=== PATIENT | female | born 1955 | race Caucasian/White ===

== ENCOUNTER 2018-04-23 18:37 | Emergency (ER) | payer MEDICAID ==
[~2018-04-23] VITALS: Ht 175.3 cm; Wt 60.0 kg
[2018-04-23] MEDS ORDERED: GABA-529 PO (19:14)
[2018-04-23] MEDS ORDERED: METF-960 PO (19:14)
[2018-04-23] MEDS ORDERED: TRAZ-219 PO (19:14)
[2018-04-23 19:39] LABS: GLUCOSE,POINT OF CARE 104 MG/DL (70-110)
[2018-04-23] MEDS ORDERED: OLAN5TAB2 PO (19:45)
[2018-04-23] MEDS ORDERED: SODIUM CHLORIDE 0.9% 1,000 ML IV ONE (20:00)
[2018-04-23 20:08] LABS: BASOPHILS % (AUTO) 0.7 % (0.0-2.0); EOSINOPHILS % (AUTO) 1.5 % (1.0-6.0); HEMATOCRIT 44.6 % (36-46); HEMOGLOBIN 15.4 g/dL (12.0-16.0); LYMPHOCYTES % (AUTO) 29.9 % (22.0-44.0); MEAN CORPUSCULAR HEMOGLOBIN 31.8 pg (26.0-34.0); MEAN CORPUSCULAR HGB CONC 34.6 G/dL (31.0-37.0); MEAN CORPUSCULAR VOLUME 92 fL (80-100); MONOCYTES # (AUTO) 0.6 K/uL (0.1-1.0); MONOCYTES % (AUTO) 5.8 % (2.0-9.0); NEUTROPHILS # (AUTO) 6.2 K/uL (1.8-7.7); NEUTROPHILS % (AUTO) 62.1 % (40.0-70.0); PLATELET COUNT (AUTO) 195 K/uL (150-450); RED BLOOD CELL COUNT(AUTO) 4.84 MIL/uL (4.00-5.20); RED CELL DISTRIBUTION WIDTH 13.7 % (11.5-14.5)
[2018-04-23 20:18] LABS: ANION GAP 8 mmol/L (8-16); CALCIUM, TOTAL 9.3 mg/dL (8.8-10.5); CARBON DIOXIDE 27 mmol/L (22-29); CHLORIDE 104 mmol/L (98-107); CREATININE 0.46 mg/dL (0.60-1.30); GLOMERULAR FILTR. RATE CALC > 60 mL/min (>60); GLUCOSE,RANDOM 106 mg/dL (70-110); SODIUM SERUM 139 mmol/L (136-145); UREA NITROGEN, BLOOD 9 mg/dL (7-18)
[2018-04-23 20:24] LABS: ALANINE AMINOTRANSFERASE 16 U/L (12-78); ALBUMIN 3.7 g/dL (3.4-5.0); ALKALINE PHOSPHATASE 78 U/L (46-116); ASPARTATE AMINOTRANSFERASE 13 U/L (15-37); BILIRUBIN,TOTAL 0.5 mg/dL (0.1-1.0); TOTAL PROTEIN, SERUM 7.3 g/dL (6.4-8.2)
[2018-04-23] MEDS ORDERED: POTASSIUM CHLORIDE 20 MEQ ER TABLET PO ONE (21:00)
[2018-04-23 21:34] LABS: APPEARANCE,URINE CLOUDY (CLEAR); BILIRUBIN,URINE NEGATIVE (NEGATIVE); GLUCOSE, URINE (UA) NEGATIVE (NEGATIVE); KETONES,URINE NEGATIVE (NEGATIVE); LEUKOCYTE ESTERASE ,URINE SMALL (NEGATIVE); NITRATE,URINE POSITIVE (NEGATIVE); OCCULT BLOOD,URINE NEGATIVE (NEGATIVE); PROTEIN,URINE NEGATIVE (NEGATIVE)
[2018-04-23 21:40] LABS: AMPHET/METH SCREEN,URINE NEGATIVE (NEGATIVE); BARBITURATE SCREEN, URINE NEGATIVE (NEGATIVE); BENZODIAZEPINES SCREEN,URINE NEGATIVE (NEGATIVE); CANNABINOID SCREEN,URINE NEGATIVE (NEGATIVE); COCAINE SCREEN,URINE NEGATIVE (NEGATIVE); METHADONE SCREEN, URINE NEGATIVE (NEGATIVE); OPIATE SCREEN,URINE NEGATIVE (NEGATIVE); PHENCYCLIDINE SCREEN,URINE NEGATIVE (NEGATIVE)
[2018-04-23 21:48] LABS: CALCIUM OXALATE CRYSTALS,UR Many /LPF (None Seen)
[2018-04-23 21:50] LABS: BACTERIA,URINE Many /HPF (None Seen)
[2018-04-23 21:52] LABS: RBC,URINE None Seen /HPF (0-2)
[2018-04-23] MEDS ORDERED: CIPROFLOXACIN HCL 250 MG TABLET PO ONE (22:30)
[2018-04-23 22:48] VITALS: BP 132/73
== END 2018-04-23 22:52 | disposition home or self-care (01) ==
LOC: EMS 18:39
DX: R42 Dizziness and giddiness (principal); N39.0 Urinary tract infection, site not specified; E87.6 Hypokalemia; L98.9 Disorder of the skin and subcutaneous tissue, unspecified; E11.9 Type 2 diabetes mellitus without complications; I10 Essential (primary) hypertension; Z79.84 Long term (current) use of oral hypoglycemic drugs
CPT/HCPCS: 36415; 80053; 80307; 81001; 82962; 84484; 85025; 87077; 87086; 87186; 93005; 96360; 96361; 99285; 99406; G0480; J7030

== ENCOUNTER 2019-06-05 16:04 | Emergency (ER) | payer SELFPAY ==
[~2019-06-05] VITALS: Ht 172.7 cm; Wt 68.2 kg
[~2019-06-05 16:04] MED LIST: GABA-529 PO; METF-960 PO; OLAN5TAB2 PO; TRAZ-252 PO
[2019-06-05] MEDS ORDERED: HALOPERIDOL LACTATE 5 MG/ML VIAL IM ONE (16:15)
[2019-06-05] MEDS ORDERED: LORazepam 2 MG/ML VIAL IM ONE (16:15)
[2019-06-05] MEDS ORDERED: DiphenhydrAMINE HCL 50 MG/ML VIAL IM ONE (16:15)
[2019-06-05 16:35] LABS: GLUCOSE,POINT OF CARE 87 MG/DL (70-110)
[2019-06-05] MEDS ORDERED: METF-960 PO (16:45)
[2019-06-05] MEDS ORDERED: AMLO5TAB9 PO (16:49)
[2019-06-05] MEDS ORDERED: SERT50TA12 PO (16:49)
[2019-06-05] MEDS ORDERED: TRAZ150 PO (16:49)
[2019-06-05] MEDS ORDERED: OLAN2.5T3 PO (16:49)
[2019-06-05] MEDS ORDERED: HYDR25TA PO (16:49)
[2019-06-05 17:15] LABS: BASOPHILS % (AUTO) 0.6 % (0.0-2.0); EOSINOPHILS % (AUTO) 0.8 % (1.0-6.0); HEMATOCRIT 36.4 % (36-46); HEMOGLOBIN 12.6 g/dL (12.0-16.0); LYMPHOCYTES # (AUTO) 2.2 K/uL (1.0-4.8); LYMPHOCYTES % (AUTO) 29.1 % (22.0-44.0); MEAN CORPUSCULAR HEMOGLOBIN 33.2 pg (26.0-34.0); MEAN CORPUSCULAR HGB CONC 34.5 G/dL (31.0-37.0); MEAN CORPUSCULAR VOLUME 96 fL (80-100); MONOCYTES # (AUTO) 0.6 K/uL (0.1-1.0); MONOCYTES % (AUTO) 8.1 % (2.0-9.0); NEUTROPHILS # (AUTO) 4.7 K/uL (1.8-7.7); NEUTROPHILS % (AUTO) 61.4 % (40.0-70.0); PLATELET COUNT (AUTO) 239 K/uL (150-450); RED BLOOD CELL COUNT(AUTO) 3.78 MIL/uL (4.00-5.20); RED CELL DISTRIBUTION WIDTH 13.5 % (11.5-14.5)
[2019-06-05] MEDS ORDERED: LORazepam 1 MG TABLET PO ONE (17:30)
[2019-06-05] MEDS ORDERED: OLANZapine 5 MG TABLET PO ONE (17:30)
[2019-06-05 18:32] LABS: ALANINE AMINOTRANSFERASE 13 U/L (12-78); ALBUMIN 3.6 g/dL (3.4-5.0); ALKALINE PHOSPHATASE 75 U/L (46-116); ANION GAP 6 mmol/L (8-16); ASPARTATE AMINOTRANSFERASE 8 U/L (15-37); BILIRUBIN,TOTAL 0.3 mg/dL (0.1-1.0); CALCIUM, TOTAL 9.4 mg/dL (8.8-10.5); CARBON DIOXIDE 35 mmol/L (22-29); CHLORIDE 99 mmol/L (98-107); GLOMERULAR FILTR. RATE CALC > 60 mL/min (>60); GLUCOSE,RANDOM 94 mg/dL (70-110); SODIUM SERUM 140 mmol/L (136-145); TOTAL PROTEIN, SERUM 7.7 g/dL (6.4-8.2); UREA NITROGEN, BLOOD 17 mg/dL (7-18)
[2019-06-05 18:40] LABS: SALICYLATE 2.8 mg/dL (2.8-20.0)
[2019-06-05 18:45] LABS: ACETAMINOPHEN < 2 mcg/mL (10-30)
[2019-06-05 19:32] LABS: APPEARANCE,URINE CLEAR (CLEAR); BILIRUBIN,URINE NEGATIVE (NEGATIVE); GLUCOSE, URINE (UA) NEGATIVE (NEGATIVE); KETONES,URINE NEGATIVE (NEGATIVE); LEUKOCYTE ESTERASE ,URINE NEGATIVE (NEGATIVE); NITRATE,URINE NEGATIVE (NEGATIVE); OCCULT BLOOD,URINE NEGATIVE (NEGATIVE); PROTEIN,URINE TRACE (NEGATIVE); UROBILINOGEN,URINE 0.2 mg/dL (<=1.0)
[2019-06-05 19:37] LABS: AMPHET/METH SCREEN,URINE NEGATIVE (NEGATIVE); BARBITURATE SCREEN, URINE NEGATIVE (NEGATIVE); BENZODIAZEPINES SCREEN,URINE NEGATIVE (NEGATIVE); CANNABINOID SCREEN,URINE NEGATIVE (NEGATIVE); COCAINE SCREEN,URINE NEGATIVE (NEGATIVE); METHADONE SCREEN, URINE NEGATIVE (NEGATIVE); OPIATE SCREEN,URINE NEGATIVE (NEGATIVE)
[2019-06-05] MEDS ORDERED: POTASSIUM CHLORIDE 10% 40 MEQ/30 ML LIQUID UDCUP PO ONE (19:45)
[2019-06-05 19:49] LABS: PHENCYCLIDINE SCREEN,URINE NEGATIVE (NEGATIVE)
[2019-06-05 20:18] LABS: BACTERIA,URINE Few /HPF (None Seen); CALCIUM OXALATE CRYSTALS,UR Rare /LPF (None Seen); RBC,URINE None Seen /HPF (0-2); SQUAMOUS EPITHELIAL CELL,UR Moderate /LPF (None Seen); WBC,URINE 0-2 /HPF (0-5)
[2019-06-05 21:06] VITALS: BP 119/88
== END 2019-06-05 21:56 | disposition home or self-care (01) ==
LOC: EMS 16:05
DX: F43.9 Reaction to severe stress, unspecified (principal); E87.6 Hypokalemia; Z79.84 Long term (current) use of oral hypoglycemic drugs
CPT/HCPCS: 36415; 80053; 80307; 81001; 82962; 85025; 93005; 99285; G0480; G0481; J1200; J1630; J2060

== ENCOUNTER 2022-03-13 17:40 | Inpatient (IN) | payer OTHER, MEDICAID ==
[~2022-03-13] VITALS: Ht 154.9 cm; Wt 77.2 kg
[~2022-03-13 17:40] MED LIST changes: +AMLO-257 PO; -GABA-529 PO; +HYDR25TA2 PO; +METF-1211 PO; -METF-960 PO; +OLAN2.5T3 PO; -OLAN5TAB2 PO; +SERT-158 PO; -TRAZ-252 PO; +TRAZ150T80 PO
[2022-03-13] MEDS ORDERED: POTA-92 PO (18:27)
[2022-03-13] MEDS ORDERED: METF-1211 PO (18:27)
[2022-03-13] MEDS ORDERED: NYST15CR41 TP (18:27)
[2022-03-13] MEDS ORDERED: INSLAN SQ (18:27)
[2022-03-13] MEDS ORDERED: BUSP10TA23 PO (18:27)
[2022-03-13] MEDS ORDERED: DULO-114 PO (18:27)
[2022-03-13] MEDS ORDERED: GABA-1216 PO (18:27)
[2022-03-13] MEDS ORDERED: LISI-894 PO (18:27)
[2022-03-13] MEDS ORDERED: HYPR15DR23 OU (18:27)
[2022-03-13] MEDS ORDERED: LORA10TA7 PO (18:27)
[2022-03-13] MEDS ORDERED: CHOL25TA4 PO (18:27)
[2022-03-13] MEDS ORDERED: DULA1.5P SQ (18:27)
[2022-03-13] MEDS ORDERED: SENN8.8S18 PO (18:27)
[2022-03-13] MEDS ORDERED: NYST30CR9 TP (18:27)
[2022-03-13] MEDS ORDERED: DIPH25CA85 PO (18:27)
[2022-03-13] MEDS ORDERED: AMMO225L14 TP (18:27)
[2022-03-13] MEDS ORDERED: TRAM50TA4 PO (18:27)
[2022-03-13] MEDS ORDERED: DIVA-85 PO (18:27)
[2022-03-13] MEDS ORDERED: VANCOMYCIN 1GM/WATER(PEG/NADA) 200 ML IV ONE (18:30)
[2022-03-13 19:02] LABS: COVID AG,FIA SOURCE NASOPHARYNGEAL
[2022-03-13] MEDS ORDERED: DEXTROSE 50%-WATER 25 GM/50 ML SYRINGE IVP PRN (20:30)
[2022-03-13] MEDS ORDERED: LORazepam 2 MG/ML VIAL IVP PRN (20:30)
[2022-03-13 20:33] LABS: BASOPHILS % (AUTO) 0.5 % (0.0-2.0); EOSINOPHILS % (AUTO) 0.8 % (1.0-6.0); HEMATOCRIT 38.5 % (36-46); LYMPHOCYTES % (AUTO) 23.3 % (22.0-44.0); MEAN CORPUSCULAR HEMOGLOBIN 31.8 pg (26.0-34.0); MEAN CORPUSCULAR HGB CONC 33.8 G/dL (31.0-37.0); MEAN CORPUSCULAR VOLUME 94 fL (80-100); MONOCYTES # (AUTO) 0.8 K/uL (0.1-1.0); MONOCYTES % (AUTO) 9.5 % (2.0-9.0); NEUTROPHILS # (AUTO) 5.6 K/uL (1.8-7.7); NEUTROPHILS % (AUTO) 65.9 % (40.0-70.0); PLATELET COUNT (AUTO) 288 K/uL (150-450); RED CELL DISTRIBUTION WIDTH 13.8 % (11.5-14.5)
[2022-03-13 20:37] LABS: ANION GAP 12 mmol/L (8-16); CARBON DIOXIDE 24 mmol/L (22-29); CHLORIDE 102 mmol/L (98-107); GLUCOSE,RANDOM 173 mg/dL (70-110); POTASSIUM 4.2 mmol/L (3.5-5.1); SODIUM SERUM 138 mmol/L (136-145); UREA NITROGEN, BLOOD 29 mg/dL (7-18)
[2022-03-13 20:38] LABS: GLOMERULAR FILTR. RATE CALC 56 mL/min (>60)
[2022-03-13 20:43] LABS: ALANINE AMINOTRANSFERASE 13 U/L (12-78); ALBUMIN 2.9 g/dL (3.4-5.0); ALKALINE PHOSPHATASE 176 U/L (46-116); ASPARTATE AMINOTRANSFERASE 16 U/L (15-37); BILIRUBIN,TOTAL 0.5 mg/dL (0.1-1.0); TOTAL PROTEIN, SERUM 7.6 g/dL (6.4-8.2)
[2022-03-13] MEDS ORDERED: OxyCODONE HCL/ACETAMINOPHEN 5-325 MG TABLET PO PRN (20:45)
[2022-03-13] MEDS ORDERED: ZOLPIDEM TARTRATE 5 MG TABLET PO PRN (20:45)
[2022-03-13] MEDS ORDERED: ACETAMINOPHEN 325 MG TABLET PO PRN (20:45)
[2022-03-13] MEDS ORDERED: ONDANSETRON HCL 4 MG/2 ML VIAL IVP PRN (20:45)
[2022-03-13] MEDS: AmLODIPine BESYLATE 5 MG TABLET PO SCH (22:00)
[2022-03-13] MEDS: DOCUSATE SODIUM 100 MG CAPSULE PO SCH (22:00)
[2022-03-13 22:12] VITALS: BP 124/71
[2022-03-14] MEDS ORDERED: SODIUM CHLORIDE 0.9% 1,000 ML ONE (01:26)
[2022-03-14] MEDS: CefTRIAXone 1 GM/DEXTROSE 50 ML IV SCH (03:24)
[2022-03-14 05:28] VITALS: BP 109/76
[2022-03-14 05:54] LABS: ANION GAP 9 mmol/L (8-16); CALCIUM, TOTAL 8.9 mg/dL (8.8-10.5); CARBON DIOXIDE 23 mmol/L (22-29); CHLORIDE 107 mmol/L (98-107); CREATININE 0.87 mg/dL (0.60-1.30); GLUCOSE,RANDOM 143 mg/dL (70-110); POTASSIUM 3.9 mmol/L (3.5-5.1); SODIUM SERUM 139 mmol/L (136-145); UREA NITROGEN, BLOOD 23 mg/dL (7-18)
[2022-03-14 06:02] LABS: GLOMERULAR FILTR. RATE CALC > 60 mL/min (>60)
[2022-03-14] MEDS ORDERED: VANCOMYCIN HCL 500 MG in DEXTROSE 5%-WATER 100 ML IV SCH (08:00)
[2022-03-14 08:21] VITALS: BP 138/82
[2022-03-14] MEDS: HEPARIN SODIUM,PORCINE 5,000 UNITS/ML VIAL SQ SCH ×4 (08:26→23:37)
[2022-03-14] MEDS: VANCOMYCIN HCL 750 MG in DEXTROSE 5%-WATER 250 ML IV SCH ×2 (08:26→20:31)
[2022-03-14] MEDS: FAMOTIDINE 20 MG TABLET PO SCH (08:27)
[2022-03-14] MEDS: ASPIRIN 81 MG CHEWABLE TABLET PO SCH (08:27)
[2022-03-14] MEDS: DOCUSATE SODIUM 100 MG CAPSULE PO SCH ×2 (08:27→20:41)
[2022-03-14] MEDS: MULTIVITAMINS WITH MINERALS, THERAPEUTIC TABLET PO SCH (08:27)
[2022-03-14 12:14] VITALS: BP 125/71
[2022-03-14] MEDS ORDERED: QUEtiapine FUMARATE 100 MG TABLET PO PRN (13:00)
[2022-03-14 14:40] LABS: GLUCOMETER DEV NAME(LOC) 5S.1B; GLUCOSE,POINT OF CARE 126 MG/DL (70-110)
[2022-03-14] MEDS: INSULIN LISPRO 100 UNITS/ML SQ PRN (14:44)
[2022-03-14] MEDS: BusPIRone HCL 10 MG TABLET PO SCH ×2 (16:00→20:31)
[2022-03-14 16:05] VITALS: BP 102/64
[2022-03-14 19:36] VITALS: BP 125/78
[2022-03-14] MEDS: LORazepam 2 MG/ML VIAL IVP PRN (20:15)
[2022-03-14] MEDS: TraZODone HCL 150 MG TABLET PO SCH (20:32)
[2022-03-14] MEDS: AmLODIPine BESYLATE 5 MG TABLET PO SCH (20:41)
[2022-03-15] MEDS: CefTRIAXone 1 GM/DEXTROSE 50 ML IV SCH (03:26)
[2022-03-15 03:51] VITALS: BP 116/72
[2022-03-15 05:21] LABS: GLUCOMETER DEV NAME(LOC) 5S.2B; GLUCOSE,POINT OF CARE 212 MG/DL (70-110)
[2022-03-15 06:35] LABS: ANION GAP 9 mmol/L (8-16); CALCIUM, TOTAL 8.2 mg/dL (8.8-10.5); CARBON DIOXIDE 22 mmol/L (22-29); CHLORIDE 105 mmol/L (98-107); CREATININE 0.86 mg/dL (0.60-1.30); GLUCOSE,RANDOM 235 mg/dL (70-110); SODIUM SERUM 136 mmol/L (136-145); UREA NITROGEN, BLOOD 17 mg/dL (7-18); VANCOMYCIN,RANDOM 18.1 mcg/mL (25.0-50.0)
[2022-03-15 06:37] LABS: GLOMERULAR FILTR. RATE CALC > 60 mL/min (>60)
[2022-03-15] MEDS: LORazepam 2 MG/ML VIAL IVP PRN (06:56)
[2022-03-15] MEDS: HEPARIN SODIUM,PORCINE 5,000 UNITS/ML VIAL SQ SCH ×3 (08:04→23:29)
[2022-03-15] MEDS: VANCOMYCIN HCL 750 MG in DEXTROSE 5%-WATER 250 ML IV SCH ×2 (08:04→20:34)
[2022-03-15] MEDS: MULTIVITAMINS WITH MINERALS, THERAPEUTIC TABLET PO SCH (08:05)
[2022-03-15] MEDS: FAMOTIDINE 20 MG TABLET PO SCH (08:05)
[2022-03-15] MEDS: DOCUSATE SODIUM 100 MG CAPSULE PO SCH ×2 (08:05→20:34)
[2022-03-15] MEDS: ASPIRIN 81 MG CHEWABLE TABLET PO SCH (08:05)
[2022-03-15] MEDS: BusPIRone HCL 10 MG TABLET PO SCH ×3 (08:07→20:34)
[2022-03-15] MEDS: DULoxetine HCL 30 MG CAPSULE PO SCH (08:07)
[2022-03-15 09:00] VITALS: BP 122/68
[2022-03-15 17:47] LABS: GLUCOMETER DEV NAME(LOC) 5S.1B; GLUCOSE,POINT OF CARE 216 MG/DL (70-110)
[2022-03-15 17:47] LABS: GLUCOMETER DEV NAME(LOC) 5S.1B; GLUCOSE,POINT OF CARE 317 MG/DL (70-110)
[2022-03-15 19:37] VITALS: BP 105/66
[2022-03-15] MEDS: TraZODone HCL 150 MG TABLET PO SCH (20:34)
[2022-03-15] MEDS: AmLODIPine BESYLATE 5 MG TABLET PO SCH (20:34)
[2022-03-15] MEDS: INSULIN LISPRO 100 UNITS/ML SQ PRN (20:34)
[2022-03-15 22:36] LABS: GLUCOMETER DEV NAME(LOC) 6N.1; GLUCOSE,POINT OF CARE 221 MG/DL (70-110)
[2022-03-16] MEDS: CefTRIAXone 1 GM/DEXTROSE 50 ML IV SCH (02:37)
[2022-03-16 04:00] VITALS: BP 128/73
[2022-03-16] MEDS: INSULIN LISPRO 100 UNITS/ML SQ PRN ×3 (06:33→20:10)
[2022-03-16 07:09] LABS: ANION GAP 12 mmol/L (8-16); CALCIUM, TOTAL 8.9 mg/dL (8.8-10.5); CARBON DIOXIDE 24 mmol/L (22-29); CHLORIDE 105 mmol/L (98-107); CREATININE 0.79 mg/dL (0.60-1.30); GLUCOSE,RANDOM 137 mg/dL (70-110); POTASSIUM 3.7 mmol/L (3.5-5.1); SODIUM SERUM 141 mmol/L (136-145); UREA NITROGEN, BLOOD 14 mg/dL (7-18)
[2022-03-16 07:18] LABS: GLOMERULAR FILTR. RATE CALC > 60 mL/min (>60)
[2022-03-16] MEDS: HEPARIN SODIUM,PORCINE 5,000 UNITS/ML VIAL SQ SCH ×3 (08:00→23:30)
[2022-03-16 08:06] LABS: GLUCOMETER DEV NAME(LOC) 6N.1; GLUCOSE,POINT OF CARE 150 MG/DL (70-110)
[2022-03-16] MEDS: VANCOMYCIN HCL 750 MG in DEXTROSE 5%-WATER 250 ML IV SCH (08:30)
[2022-03-16] MEDS: BusPIRone HCL 10 MG TABLET PO SCH ×3 (08:30→20:10)
[2022-03-16] MEDS: DULoxetine HCL 30 MG CAPSULE PO SCH (08:30)
[2022-03-16 09:18] LABS: BASOPHILS % (AUTO) 1.1 % (0.0-2.0); EOSINOPHILS % (AUTO) 0.9 % (1.0-6.0); HEMATOCRIT 34.9 % (36-46); HEMOGLOBIN 11.6 g/dL (12.0-16.0); LYMPHOCYTES # (AUTO) 2.2 K/uL (1.0-4.8); LYMPHOCYTES % (AUTO) 25.9 % (22.0-44.0); MEAN CORPUSCULAR HEMOGLOBIN 31.5 pg (26.0-34.0); MEAN CORPUSCULAR HGB CONC 33.4 G/dL (31.0-37.0); MEAN CORPUSCULAR VOLUME 95 fL (80-100); MONOCYTES # (AUTO) 0.7 K/uL (0.1-1.0); MONOCYTES % (AUTO) 8.6 % (2.0-9.0); NEUTROPHILS # (AUTO) 5.4 K/uL (1.8-7.7); NEUTROPHILS % (AUTO) 63.5 % (40.0-70.0); PLATELET COUNT (AUTO) 317 K/uL (150-450); RED BLOOD CELL COUNT(AUTO) 3.69 MIL/uL (4.00-5.20); RED CELL DISTRIBUTION WIDTH 13.9 % (11.5-14.5)
[2022-03-16] MEDS: SULFAMETHOX/TRIMETH DS 800-160 MG/TABLET PO SCH ×2 (10:46→20:10)
[2022-03-16] MEDS: ASPIRIN 81 MG CHEWABLE TABLET PO SCH (10:46)
[2022-03-16 12:57] LABS: GLUCOMETER DEV NAME(LOC) 6N.1; GLUCOSE,POINT OF CARE 241 MG/DL (70-110)
[2022-03-16 15:58] VITALS: BP 125/86
[2022-03-16] MEDS: DOCUSATE SODIUM 100 MG CAPSULE PO SCH ×2 (15:59→20:09)
[2022-03-16] MEDS: FAMOTIDINE 20 MG TABLET PO SCH (15:59)
[2022-03-16] MEDS: MULTIVITAMINS WITH MINERALS, THERAPEUTIC TABLET PO SCH (16:01)
[2022-03-16 19:45] VITALS: BP 136/73
[2022-03-16] MEDS: AmLODIPine BESYLATE 5 MG TABLET PO SCH (20:09)
[2022-03-16] MEDS: TraZODone HCL 150 MG TABLET PO SCH (20:10)
[2022-03-16] MEDS ORDERED: SENN8.6T20 PO (20:34)
[2022-03-16 21:12] LABS: GLUCOMETER DEV NAME(LOC) 6N.1; GLUCOSE,POINT OF CARE 235 MG/DL (70-110)
[2022-03-17 05:00] VITALS: BP 129/73
[2022-03-17] MEDS: INSULIN LISPRO 100 UNITS/ML SQ PRN ×3 (05:59→20:03)
[2022-03-17 06:36] LABS: ANION GAP 11 mmol/L (8-16); CALCIUM, TOTAL 8.6 mg/dL (8.8-10.5); CARBON DIOXIDE 27 mmol/L (22-29); CHLORIDE 102 mmol/L (98-107); CREATININE 0.83 mg/dL (0.60-1.30); GLUCOSE,RANDOM 138 mg/dL (70-110); POTASSIUM 4.2 mmol/L (3.5-5.1); SODIUM SERUM 140 mmol/L (136-145); UREA NITROGEN, BLOOD 13 mg/dL (7-18); VANCOMYCIN,RANDOM 13.3 mcg/mL (25.0-50.0)
[2022-03-17 06:37] LABS: GLOMERULAR FILTR. RATE CALC > 60 mL/min (>60)
[2022-03-17] MEDS: DULoxetine HCL 30 MG CAPSULE PO SCH (07:34)
[2022-03-17] MEDS: FAMOTIDINE 20 MG TABLET PO SCH (07:34)
[2022-03-17] MEDS: SULFAMETHOX/TRIMETH DS 800-160 MG/TABLET PO SCH ×2 (07:34→20:03)
[2022-03-17] MEDS: BusPIRone HCL 10 MG TABLET PO SCH ×3 (07:34→20:03)
[2022-03-17] MEDS: ASPIRIN 81 MG CHEWABLE TABLET PO SCH (07:35)
[2022-03-17] MEDS: MULTIVITAMINS WITH MINERALS, THERAPEUTIC TABLET PO SCH (07:35)
[2022-03-17] MEDS: HEPARIN SODIUM,PORCINE 5,000 UNITS/ML VIAL SQ SCH ×3 (07:35→23:35)
[2022-03-17] MEDS: DOCUSATE SODIUM 100 MG CAPSULE PO SCH ×2 (07:35→20:03)
[2022-03-17 07:40] VITALS: BP 112/68
[2022-03-17 08:21] LABS: GLUCOMETER DEV NAME(LOC) 6N.2; GLUCOSE,POINT OF CARE 151 MG/DL (70-110)
[2022-03-17 13:02] LABS: GLUCOMETER DEV NAME(LOC) 6N.1; GLUCOSE,POINT OF CARE 199 MG/DL (70-110)
[2022-03-17 15:39] VITALS: BP 138/75
[2022-03-17 18:06] LABS: GLUCOMETER DEV NAME(LOC) 6N.2; GLUCOSE,POINT OF CARE 230 MG/DL (70-110)
[2022-03-17 19:40] VITALS: BP 118/68
[2022-03-17] MEDS: AmLODIPine BESYLATE 5 MG TABLET PO SCH (20:03)
[2022-03-17] MEDS: TraZODone HCL 150 MG TABLET PO SCH (20:03)
[2022-03-18 03:30] VITALS: BP 127/67
[2022-03-18 04:36] LABS: GLUCOMETER DEV NAME(LOC) 6N.2; GLUCOSE,POINT OF CARE 227 MG/DL (70-110)
[2022-03-18] MEDS: INSULIN LISPRO 100 UNITS/ML SQ PRN ×3 (05:53→17:01)
[2022-03-18 07:06] LABS: GLUCOMETER DEV NAME(LOC) 6N.1; GLUCOSE,POINT OF CARE 170 MG/DL (70-110)
[2022-03-18 08:00] VITALS: BP 159/86
[2022-03-18] MEDS: HEPARIN SODIUM,PORCINE 5,000 UNITS/ML VIAL SQ SCH ×2 (08:00→16:54)
[2022-03-18] MEDS: BusPIRone HCL 10 MG TABLET PO SCH ×2 (08:28→16:54)
[2022-03-18] MEDS: DULoxetine HCL 30 MG CAPSULE PO SCH (08:28)
[2022-03-18] MEDS: MULTIVITAMINS WITH MINERALS, THERAPEUTIC TABLET PO SCH (08:30)
[2022-03-18] MEDS: DOCUSATE SODIUM 100 MG CAPSULE PO SCH (08:31)
[2022-03-18] MEDS: ASPIRIN 81 MG CHEWABLE TABLET PO SCH (08:31)
[2022-03-18] MEDS: FAMOTIDINE 20 MG TABLET PO SCH (08:31)
[2022-03-18] MEDS: SULFAMETHOX/TRIMETH DS 800-160 MG/TABLET PO SCH (08:32)
[2022-03-18 14:01] LABS: GLUCOMETER DEV NAME(LOC) 6N.1; GLUCOSE,POINT OF CARE 155 MG/DL (70-110)
[2022-03-18] MEDS ORDERED: ASPI-1450 PO (15:43)
[2022-03-18] MEDS ORDERED: AMLO-258 PO (15:43)
[2022-03-18] MEDS ORDERED: DOCU-385 PO (15:44)
[2022-03-18] MEDS ORDERED: FAMO20 PO (15:46)
[2022-03-18] MEDS ORDERED: MULT-248 PO (15:47)
[2022-03-18] MEDS ORDERED: BACTDSB PO (15:47)
[2022-03-18] MEDS ORDERED: ACET-784 PO (15:48)
[2022-03-18 16:00] VITALS: BP 138/80
[2022-03-18 18:06] LABS: GLUCOMETER DEV NAME(LOC) 6N.2; GLUCOSE,POINT OF CARE 153 MG/DL (70-110)
== END 2022-03-18 21:56 | disposition home or self-care (01) | DRG 605 ==
LOC: EMS 17:47 → 5N 20:46 → 6N 03-15 18:02
PROVIDERS: ADMIT Internal Medicine; ATTEND Internal Medicine
DX: S21.109A Unspecified open wound of unspecified front wall of thorax without penetration into thoracic cavity, initial encounter (principal); F33.1 Major depressive disorder, recurrent, moderate; E11.9 Type 2 diabetes mellitus without complications; F41.9 Anxiety disorder, unspecified; I10 Essential (primary) hypertension; F17.210 Nicotine dependence, cigarettes, uncomplicated; F20.9 Schizophrenia, unspecified; Z20.822 Contact with and (suspected) exposure to COVID-19; F99 Mental disorder, not otherwise specified; J44.9 Chronic obstructive pulmonary disease, unspecified; X58.XXXA Exposure to other specified factors, initial encounter; Z91.19 Patient's noncompliance with other medical treatment and regimen; Z89.511 Acquired absence of right leg below knee; Y93.89 Activity, other specified; Y92.89 Other specified places as the place of occurrence of the external cause; Y99.8 Other external cause status
CPT/HCPCS: 80048; 80053; 80202; 82962; 85025; 87070; 87081; 87205; 97162; 97165; 97535; 99285; G0480; J0696; J1644; J2060; J3370; J7030; J7060; Q9967

== ENCOUNTER 2022-08-11 13:32 | Inpatient (IN) | payer OTHER, MEDICAID ==
[~2022-08-11] VITALS: Ht 175.3 cm; Wt 66.9 kg
[~2022-08-11 13:32] MED LIST changes: +ACET-784 PO; -AMLO-257 PO; +AMLO-258 PO; +ASPI-1450 PO; +BACTDSB PO; +BUSP10TA23 PO; +DOCU-385 PO; +DULO-114 PO; +FAMO20 PO; -HYDR25TA2 PO; +MULT-248 PO; -OLAN2.5T3 PO; -SERT-158 PO; -TRAZ150T80 PO
[2022-08-11] MEDS ORDERED: SODIUM CHLORIDE 0.9% 2,000 ML IV ONE (13:45)
[2022-08-11] MEDS ORDERED: VANCOMYCIN 1GM/WATER(PEG/NADA) 200 ML IV ONE (14:00)
[2022-08-11 14:01] LABS: GLUCOMETER DEV NAME(LOC) ERT.5; GLUCOSE,POINT OF CARE 305 MG/DL (70-110)
[2022-08-11 14:30] LABS: COVID AG,FIA SOURCE NASOPHARYNGEAL
[2022-08-11] MEDS ORDERED: LORazepam 2 MG/ML VIAL IVP ONE (14:30)
[2022-08-11 14:35] LABS: BASOPHILS % (AUTO) 0.2 % (0.0-2.0); EOSINOPHILS % (AUTO) 0 % (1.0-6.0); HEMATOCRIT 37.2 % (36-46); HEMOGLOBIN 11.9 g/dL (12.0-16.0); LYMPHOCYTES # (AUTO) 0.8 K/uL (1.0-4.8); LYMPHOCYTES % (AUTO) 4.4 % (22.0-44.0); MEAN CORPUSCULAR HEMOGLOBIN 30.7 pg (26.0-34.0); MEAN CORPUSCULAR HGB CONC 31.9 G/dL (31.0-37.0); MEAN CORPUSCULAR VOLUME 96 fL (80-100); MONOCYTES # (AUTO) 1.3 K/uL (0.1-1.0); MONOCYTES % (AUTO) 6.9 % (2.0-9.0); NEUTROPHILS # (AUTO) 16.4 K/uL (1.8-7.7); PLATELET COUNT (AUTO) 251 K/uL (150-450); RED BLOOD CELL COUNT(AUTO) 3.87 MIL/uL (4.00-5.20)
[2022-08-11 14:38] LABS: ANION GAP 14 mmol/L (8-16); CALCIUM, TOTAL 8.9 mg/dL (8.8-10.5); CARBON DIOXIDE 22 mmol/L (22-29); CHLORIDE 101 mmol/L (98-107); CREATININE 1.79 mg/dL (0.60-1.30); GLUCOSE,RANDOM 335 mg/dL (70-110); NEUTROPHILS % (AUTO) 88.5 % (40.0-70.0); POTASSIUM 4.7 mmol/L (3.5-5.1); SODIUM SERUM 137 mmol/L (136-145); UREA NITROGEN, BLOOD 48 mg/dL (7-18)
[2022-08-11 14:40] LABS: GLOMERULAR FILTR. RATE CALC 28 mL/min (>60)
[2022-08-11 14:46] LABS: APPEARANCE,URINE TURBID (CLEAR); BILIRUBIN,URINE NEGATIVE (NEGATIVE); GLUCOSE, URINE (UA) >=1000 mg/dL (NEGATIVE); KETONES,URINE NEGATIVE (NEGATIVE); LEUKOCYTE ESTERASE ,URINE LARGE (NEGATIVE); NITRATE,URINE NEGATIVE (NEGATIVE); OCCULT BLOOD,URINE SMALL (NEGATIVE); PROTEIN,URINE 30-70 mg/dL (NEGATIVE); SPECIFIC GRAVITIY, URINE 1.013 (1.003-1.030); UROBILINOGEN,URINE <=1.0 mg/dL (<=1.0)
[2022-08-11 14:52] LABS: ALANINE AMINOTRANSFERASE 9 U/L (12-78); ALBUMIN 2.7 g/dL (3.4-5.0); ALKALINE PHOSPHATASE 154 U/L (46-116); ASPARTATE AMINOTRANSFERASE 10 U/L (15-37); BILIRUBIN,TOTAL 0.2 mg/dL (0.1-1.0); LIPASE 47 U/L (73-393); TOTAL PROTEIN, SERUM 8.3 g/dL (6.4-8.2)
[2022-08-11 14:54] LABS: AMPHET/METH SCREEN,URINE NEGATIVE (NEGATIVE); BARBITURATE SCREEN, URINE NEGATIVE (NEGATIVE); BENZODIAZEPINES SCREEN,URINE NEGATIVE (NEGATIVE); CANNABINOID SCREEN,URINE NEGATIVE (NEGATIVE); COCAINE SCREEN,URINE NEGATIVE (NEGATIVE); METHADONE SCREEN, URINE NEGATIVE (NEGATIVE); OPIATE SCREEN,URINE NEGATIVE (NEGATIVE)
[2022-08-11 14:54] LABS: LACTIC ACID 4.1 mmol/L (0.4-2.0)
[2022-08-11 15:00] LABS: PHENCYCLIDINE SCREEN,URINE NEGATIVE (NEGATIVE)
[2022-08-11] MEDS ORDERED: ACETAMINOPHEN 500 MG TABLET PO ONE (15:00)
[2022-08-11 15:09] LABS: B-TYPE NATRIURETIC PEPTIDE 75 pg/mL (0-100)
[2022-08-11] MEDS ORDERED: ACETAMINOPHEN 1000 MG/ISO-OSM 100 ML IV ONE (15:15)
[2022-08-11] MEDS ORDERED: MORPHINE SULFATE 4 MG/ML SYRINGE IVP ONE (15:15)
[2022-08-11 15:16] LABS: WBC,URINE Full Field /HPF (0-5)
[2022-08-11 15:17] LABS: BACTERIA,URINE Many /HPF (None Seen); RBC,URINE 0-2 /HPF (0-2); SQUAMOUS EPITHELIAL CELL,UR Few /LPF (None Seen)
[2022-08-11] MEDS ORDERED: DEXAMETHASONE SOD PHOS 4 MG/ML 5 ML VIAL IVP ONE (16:00)
[2022-08-11] MEDS ORDERED: PIPERACILLIN/TAZO 3.375 GM/D5W 50 ML IV ONE (16:45)
[2022-08-11] MEDS ORDERED: ACETAMINOPHEN 325 MG TABLET PO PRN ×2 (16:45→17:00)
[2022-08-11] MEDS ORDERED: ONDANSETRON HCL 4 MG/2 ML VIAL IVP PRN ×2 (16:45→17:00)
[2022-08-11] MEDS ORDERED: SODIUM CHLORIDE 0.9% 1,000 ML IV ONE ×2 (16:45→17:00)
[2022-08-11] MEDS ORDERED: 0.9% SODIUM CHLORIDE 10 ML SYRINGE IVP PRN (16:45)
[2022-08-11] MEDS ORDERED: HYDROGEN PEROXIDE 118 ML SOLUTION TP ONE (17:00)
[2022-08-11] MEDS ORDERED: MAGNESIUM HYDROXIDE SUSPENSION 30 ML UDCUP PO PRN (17:00)
[2022-08-11] MEDS ORDERED: BISACODYL 10 MG RECTAL RECTAL SUPPOSITORY PR PRN (17:00)
[2022-08-11] MEDS ORDERED: ZOLPIDEM TARTRATE 5 MG TABLET PO PRN (17:00)
[2022-08-11] MEDS ORDERED: PHENYLEPHRINE 200 MG/D5%-WATER 250 ML IV PRN (19:00)
[2022-08-11 20:00] VITALS: BP 101/74
[2022-08-11] MEDS: BusPIRone HCL 10 MG TABLET PO SCH ×2 (21:00→21:20)
[2022-08-11] MEDS: DULoxetine HCL 30 MG CAPSULE PO SCH ×2 (21:00→21:20)
[2022-08-11] MEDS: DOCUSATE SODIUM 100 MG CAPSULE PO SCH ×2 (21:00→21:20)
[2022-08-11] MEDS: ETHYL ALCOHOL 62% ANTISEPTIC NASAL SANITIZER 0.6 ML AMPUL NASAL SCH (21:21)
[2022-08-11] MEDS: PIPERACILLIN SODIUM/TAZOBACTAM 2.25 GM in DEXTROSE 5%-WATER 50 ML IV SCH (22:48)
[2022-08-11] MEDS ORDERED: PIPERACILLIN SODIUM/TAZOBACTAM 2.25 GM in DEXTROSE 5%-WATER 50 ML IV SCH ×2 (23:00)
[2022-08-12] VITALS (7 sets, daily range): BP systolic 91–165; BP diastolic 52–94
[2022-08-12] MEDS: HEPARIN SODIUM,PORCINE 5,000 UNITS/ML VIAL SQ SCH ×3 (00:12→16:12)
[2022-08-12] MEDS ORDERED: SODIUM CHLORIDE 0.9% 250 ML IV ONE (01:46)
[2022-08-12] MEDS: MORPHINE SULFATE 2 MG/ML SYRINGE IVP PRN ×2 (03:00→07:33)
[2022-08-12] MEDS: PIPERACILLIN SODIUM/TAZOBACTAM 2.25 GM in DEXTROSE 5%-WATER 50 ML IV SCH (05:02)
[2022-08-12 05:20] LABS: BASOPHILS % (AUTO) 0.1 % (0.0-2.0); EOSINOPHILS % (AUTO) 0 % (1.0-6.0); HEMATOCRIT 31.9 % (36-46); HEMOGLOBIN 10.4 g/dL (12.0-16.0); LYMPHOCYTES # (AUTO) 0.7 K/uL (1.0-4.8); LYMPHOCYTES % (AUTO) 3.9 % (22.0-44.0); MEAN CORPUSCULAR HEMOGLOBIN 31.1 pg (26.0-34.0); MEAN CORPUSCULAR HGB CONC 32.6 G/dL (31.0-37.0); MEAN CORPUSCULAR VOLUME 95 fL (80-100); MONOCYTES # (AUTO) 0.9 K/uL (0.1-1.0); NEUTROPHILS # (AUTO) 17.2 K/uL (1.8-7.7); PLATELET COUNT (AUTO) 240 K/uL (150-450); RED BLOOD CELL COUNT(AUTO) 3.34 MIL/uL (4.00-5.20); RED CELL DISTRIBUTION WIDTH 14.7 % (11.5-14.5)
[2022-08-12 05:28] LABS: CALCIUM, TOTAL 8.4 mg/dL (8.8-10.5); CREATININE 1.31 mg/dL (0.60-1.30); POTASSIUM 4.3 mmol/L (3.5-5.1)
[2022-08-12] MEDS: ASPIRIN 81 MG CHEWABLE TABLET PO SCH (07:32)
[2022-08-12] MEDS: ETHYL ALCOHOL 62% ANTISEPTIC NASAL SANITIZER 0.6 ML AMPUL NASAL SCH ×2 (07:32→21:16)
[2022-08-12] MEDS: BusPIRone HCL 10 MG TABLET PO SCH ×3 (07:32→20:01)
[2022-08-12] MEDS: DULoxetine HCL 30 MG CAPSULE PO SCH (07:50)
[2022-08-12] MEDS ORDERED: VANCOMYCIN HCL 1 GM in DEXTROSE 5%-WATER 250 ML IV SCH (08:00)
[2022-08-12] MEDS: DOCUSATE SODIUM 100 MG CAPSULE PO SCH ×2 (09:00→20:01)
[2022-08-12] MEDS: PANTOPRAZOLE SODIUM 40 MG DR TABLET PO SCH (09:19)
[2022-08-12] MEDS: PIPERACILLIN/TAZO 3.375 GM/D5W 50 ML IV SCH ×3 (10:00→21:16)
[2022-08-12] MEDS ORDERED: REMDESIVIR 200 MG in SODIUM CHLORIDE 0.9% 250 ML IV ONE (12:00)
[2022-08-12] MEDS: DEXAMETHASONE SOD PHOS 4 MG/ML VIAL IVP SCH (13:10)
[2022-08-12] MEDS: LORazepam 2 MG/ML VIAL IVP PRN ×2 (15:56→19:26)
[2022-08-12] MEDS: VALPROIC ACID 250 MG/5 ML SOLUTION UDCUP PO SCH (20:01)
[2022-08-13] VITALS: BP 159/72
[2022-08-13] MEDS: HEPARIN SODIUM,PORCINE 5,000 UNITS/ML VIAL SQ SCH ×3 (00:03→17:01)
[2022-08-13 04:00] VITALS: BP 175/70
[2022-08-13] MEDS: LORazepam 2 MG/ML VIAL IVP PRN ×5 (04:30→23:01)
[2022-08-13] MEDS: PIPERACILLIN/TAZO 3.375 GM/D5W 50 ML IV SCH ×4 (04:30→22:46)
[2022-08-13 05:24] LABS: BASOPHILS % (AUTO) 0.3 % (0.0-2.0); EOSINOPHILS % (AUTO) 0 % (1.0-6.0); HEMATOCRIT 32.4 % (36-46); HEMOGLOBIN 10.5 g/dL (12.0-16.0); LYMPHOCYTES # (AUTO) 0.7 K/uL (1.0-4.8); LYMPHOCYTES % (AUTO) 3.4 % (22.0-44.0); MEAN CORPUSCULAR HEMOGLOBIN 30.6 pg (26.0-34.0); MEAN CORPUSCULAR HGB CONC 32.5 G/dL (31.0-37.0); MEAN CORPUSCULAR VOLUME 94 fL (80-100); MONOCYTES # (AUTO) 0.7 K/uL (0.1-1.0); MONOCYTES % (AUTO) 3.7 % (2.0-9.0); NEUTROPHILS # (AUTO) 17.7 K/uL (1.8-7.7); PLATELET COUNT (AUTO) 248 K/uL (150-450); RED BLOOD CELL COUNT(AUTO) 3.44 MIL/uL (4.00-5.20)
[2022-08-13 05:25] LABS: NEUTROPHILS % (AUTO) 92.6 % (40.0-70.0)
[2022-08-13 05:37] LABS: ALANINE AMINOTRANSFERASE 10 U/L (12-78); ALBUMIN 1.9 g/dL (3.4-5.0); ALKALINE PHOSPHATASE 112 U/L (46-116); ANION GAP 10 mmol/L (8-16); ASPARTATE AMINOTRANSFERASE 13 U/L (15-37); BILIRUBIN,TOTAL 0.3 mg/dL (0.1-1.0); CALCIUM, TOTAL 8.6 mg/dL (8.8-10.5); CARBON DIOXIDE 22 mmol/L (22-29); CHLORIDE 108 mmol/L (98-107); CREATININE 0.97 mg/dL (0.60-1.30); GLUCOSE,RANDOM 200 mg/dL (70-110); POTASSIUM 3.7 mmol/L (3.5-5.1); SODIUM SERUM 140 mmol/L (136-145); TOTAL PROTEIN, SERUM 7.3 g/dL (6.4-8.2); UREA NITROGEN, BLOOD 31 mg/dL (7-18)
[2022-08-13 05:38] LABS: GLOMERULAR FILTR. RATE CALC 58 mL/min (>60)
[2022-08-13 06:01] LABS: FERRITIN 629 ng/mL (8-252)
[2022-08-13 06:06] LABS: C-REACTIVE PROTEIN QUANT < 0.05 mg/dL (0.00-0.30)
[2022-08-13 08:00] VITALS: BP 151/75
[2022-08-13] MEDS ORDERED: VANCOMYCIN 1GM/WATER(PEG/NADA) 200 ML IV SCH (08:00)
[2022-08-13] MEDS: DEXAMETHASONE SOD PHOS 4 MG/ML VIAL IVP SCH (08:02)
[2022-08-13] MEDS: ETHYL ALCOHOL 62% ANTISEPTIC NASAL SANITIZER 0.6 ML AMPUL NASAL SCH ×2 (08:02→20:35)
[2022-08-13] MEDS: BusPIRone HCL 10 MG TABLET PO SCH ×3 (08:03→20:35)
[2022-08-13] MEDS: DOCUSATE SODIUM 100 MG CAPSULE PO SCH ×2 (08:03→20:35)
[2022-08-13] MEDS: ASPIRIN 81 MG CHEWABLE TABLET PO SCH (08:03)
[2022-08-13] MEDS: PANTOPRAZOLE SODIUM 40 MG DR TABLET PO SCH (08:04)
[2022-08-13] MEDS: DULoxetine HCL 30 MG CAPSULE PO SCH (08:04)
[2022-08-13] MEDS: VALPROIC ACID 250 MG/5 ML SOLUTION UDCUP PO SCH ×2 (08:04→20:35)
[2022-08-13] MEDS: VANCOMYCIN HCL 750 MG in DEXTROSE 5%-WATER 250 ML IV SCH ×2 (08:24→20:34)
[2022-08-13 12:00] VITALS: BP 138/73
[2022-08-13] MEDS: REMDESIVIR 100 MG in SODIUM CHLORIDE 0.9% 250 ML IV SCH (12:40)
[2022-08-13 16:00] VITALS: BP 158/74
[2022-08-13 20:00] VITALS: BP 178/78
[2022-08-13] MEDS: OLANZapine 5 MG RAPDIS TABLET PO PRN (23:27)
[2022-08-14] VITALS (8 sets, daily range): BP systolic 139–156; BP diastolic 51–86
[2022-08-14] MEDS: HEPARIN SODIUM,PORCINE 5,000 UNITS/ML VIAL SQ SCH ×4 (00:11→23:04)
[2022-08-14] MEDS: LORazepam 2 MG/ML VIAL IVP PRN ×2 (01:34→03:48)
[2022-08-14] MEDS ORDERED: SODIUM CHLORIDE 0.9% 1,000 ML ONE (04:50)
[2022-08-14] MEDS: PIPERACILLIN/TAZO 3.375 GM/D5W 50 ML IV SCH ×4 (05:05→23:04)
[2022-08-14 06:47] LABS: BASOPHILS % (AUTO) 0.1 % (0.0-2.0); EOSINOPHILS % (AUTO) 0 % (1.0-6.0); HEMATOCRIT 32.3 % (36-46); HEMOGLOBIN 10.7 g/dL (12.0-16.0); LYMPHOCYTES % (AUTO) 3.9 % (22.0-44.0); MEAN CORPUSCULAR HEMOGLOBIN 30.9 pg (26.0-34.0); MEAN CORPUSCULAR HGB CONC 33.1 G/dL (31.0-37.0); MEAN CORPUSCULAR VOLUME 93 fL (80-100); MONOCYTES # (AUTO) 0.9 K/uL (0.1-1.0); MONOCYTES % (AUTO) 3.5 % (2.0-9.0); NEUTROPHILS # (AUTO) 23.3 K/uL (1.8-7.7); PLATELET COUNT (AUTO) 245 K/uL (150-450); RED BLOOD CELL COUNT(AUTO) 3.46 MIL/uL (4.00-5.20); RED CELL DISTRIBUTION WIDTH 14.9 % (11.5-14.5)
[2022-08-14 07:21] LABS: NEUTROPHILS % (AUTO) 92.5 % (40.0-70.0)
[2022-08-14 07:47] LABS: ALANINE AMINOTRANSFERASE 9 U/L (12-78); ALBUMIN 1.8 g/dL (3.4-5.0); ALKALINE PHOSPHATASE 103 U/L (46-116); ANION GAP 10 mmol/L (8-16); ASPARTATE AMINOTRANSFERASE 8 U/L (15-37); BILIRUBIN,TOTAL 0.3 mg/dL (0.1-1.0); CARBON DIOXIDE 24 mmol/L (22-29); CHLORIDE 107 mmol/L (98-107); CREATININE 0.91 mg/dL (0.60-1.30); FERRITIN 1269 ng/mL (8-252); GLOMERULAR FILTR. RATE CALC > 60 mL/min (>60); GLUCOSE,RANDOM 185 mg/dL (70-110); SODIUM SERUM 141 mmol/L (136-145); TOTAL PROTEIN, SERUM 7.1 g/dL (6.4-8.2); UREA NITROGEN, BLOOD 31 mg/dL (7-18)
[2022-08-14 07:57] LABS: C-REACTIVE PROTEIN QUANT 31.35 mg/dL (0.00-0.30)
[2022-08-14 08:43] LABS: VANCOMYCIN,RANDOM 14.3 mcg/mL (25.0-50.0)
[2022-08-14] MEDS: PANTOPRAZOLE SODIUM 40 MG DR TABLET PO SCH (08:50)
[2022-08-14] MEDS: BusPIRone HCL 10 MG TABLET PO SCH ×3 (08:50→20:25)
[2022-08-14] MEDS: DOCUSATE SODIUM 100 MG CAPSULE PO SCH ×2 (08:50→20:26)
[2022-08-14] MEDS: DULoxetine HCL 30 MG CAPSULE PO SCH (08:51)
[2022-08-14] MEDS: VALPROIC ACID 250 MG/5 ML SOLUTION UDCUP PO SCH ×2 (08:52→20:29)
[2022-08-14] MEDS: DEXAMETHASONE SOD PHOS 4 MG/ML VIAL IVP SCH (08:53)
[2022-08-14] MEDS: ASPIRIN 81 MG CHEWABLE TABLET PO SCH (08:54)
[2022-08-14] MEDS: ETHYL ALCOHOL 62% ANTISEPTIC NASAL SANITIZER 0.6 ML AMPUL NASAL SCH ×2 (08:55→20:39)
[2022-08-14] MEDS: VANCOMYCIN HCL 750 MG in DEXTROSE 5%-WATER 250 ML IV SCH (09:04)
[2022-08-14] MEDS ORDERED: POTASSIUM CHLORIDE 20 MEQ ER TABLET PO PRN ×2 (11:00)
[2022-08-14] MEDS ORDERED: DEXTROSE 50%-WATER 25 GM/50 ML SYRINGE IVP PRN ×3 (11:00)
[2022-08-14] MEDS ORDERED: POTASSIUM CHL 10 MEQ/WATER 50 ML IV PRN (11:00)
[2022-08-14] MEDS ORDERED: INSULIN LISPRO 100 UNITS/ML SQ PRN ×2 (11:00)
[2022-08-14] MEDS: REMDESIVIR 100 MG in SODIUM CHLORIDE 0.9% 250 ML IV SCH (11:52)
[2022-08-14] MEDS: INSULIN LISPRO 100 UNITS/ML SQ PRN ×2 (12:01→18:21)
[2022-08-14] MEDS: POTASSIUM CHL 10 MEQ/WATER 50 ML IV PRN ×2 (13:50→15:24)
[2022-08-14] MEDS: MORPHINE SULFATE 2 MG/ML SYRINGE IVP PRN (15:07)
[2022-08-14 19:46] LABS: GLUCOMETER DEV NAME(LOC) 5S.1B; GLUCOSE,POINT OF CARE 244 MG/DL (70-110)
[2022-08-14 19:47] LABS: GLUCOMETER DEV NAME(LOC) 5S.1B; GLUCOSE,POINT OF CARE 168 MG/DL (70-110)
[2022-08-14] MEDS: VANCOMYCIN 1GM/WATER(PEG/NADA) 200 ML IV SCH (20:39)
[2022-08-15 00:41] LABS: GLUCOMETER DEV NAME(LOC) 5S.1B; GLUCOSE,POINT OF CARE 157 MG/DL (70-110)
[2022-08-15] MEDS: PIPERACILLIN/TAZO 3.375 GM/D5W 50 ML IV SCH ×2 (04:37→10:00)
[2022-08-15 05:24] VITALS: BP 147/83
[2022-08-15 06:56] LABS: HEMATOCRIT 35.9 % (36-46); HEMOGLOBIN 11.7 g/dL (12.0-16.0); MEAN CORPUSCULAR HEMOGLOBIN 30.5 pg (26.0-34.0); MEAN CORPUSCULAR HGB CONC 32.5 G/dL (31.0-37.0); MEAN CORPUSCULAR VOLUME 94 fL (80-100); PLATELET COUNT (AUTO) 257 K/uL (150-450); RED BLOOD CELL COUNT(AUTO) 3.83 MIL/uL (4.00-5.20); RED CELL DISTRIBUTION WIDTH 15.5 % (11.5-14.5)
[2022-08-15 07:43] LABS: BAND NEUTROPHILS % (MANUAL) 0 % (0-5)
[2022-08-15 07:45] VITALS: BP 155/78
[2022-08-15 07:47] LABS: LYMPHOCYTES % (MANUAL) 4 % (22-44); MONOCYTES % (MANUAL) 3 % (2-9); MYELOCYTES % 1 % (0-0); SEGMENTED NEUTROPHILS % 92 % (40-70)
[2022-08-15] MEDS: VANCOMYCIN 1GM/WATER(PEG/NADA) 200 ML IV SCH ×2 (08:00→20:14)
[2022-08-15 08:05] LABS: ALANINE AMINOTRANSFERASE 8 U/L (12-78); ALBUMIN 1.9 g/dL (3.4-5.0); ALKALINE PHOSPHATASE 117 U/L (46-116); ANION GAP 12 mmol/L (8-16); ASPARTATE AMINOTRANSFERASE 12 U/L (15-37); BILIRUBIN,TOTAL 0.3 mg/dL (0.1-1.0); CALCIUM, TOTAL 8.8 mg/dL (8.8-10.5); CARBON DIOXIDE 24 mmol/L (22-29); CHLORIDE 110 mmol/L (98-107); CREATININE 0.84 mg/dL (0.60-1.30); GLOMERULAR FILTR. RATE CALC > 60 mL/min (>60); GLUCOSE,RANDOM 129 mg/dL (70-110); POTASSIUM 3.4 mmol/L (3.5-5.1); SODIUM SERUM 146 mmol/L (136-145); TOTAL PROTEIN, SERUM 7.5 g/dL (6.4-8.2); UREA NITROGEN, BLOOD 33 mg/dL (7-18)
[2022-08-15] MEDS: PANTOPRAZOLE SODIUM 40 MG DR TABLET PO SCH (10:01)
[2022-08-15] MEDS: ASPIRIN 81 MG CHEWABLE TABLET PO SCH (10:01)
[2022-08-15] MEDS: DULoxetine HCL 30 MG CAPSULE PO SCH (10:02)
[2022-08-15] MEDS: VALPROIC ACID 250 MG/5 ML SOLUTION UDCUP PO SCH (10:02)
[2022-08-15] MEDS: DOCUSATE SODIUM 100 MG CAPSULE PO SCH ×3 (10:02→21:00)
[2022-08-15] MEDS: DEXAMETHASONE SOD PHOS 4 MG/ML VIAL IVP SCH (10:02)
[2022-08-15] MEDS: HEPARIN SODIUM,PORCINE 5,000 UNITS/ML VIAL SQ SCH ×3 (10:02→23:13)
[2022-08-15] MEDS: BusPIRone HCL 10 MG TABLET PO SCH ×3 (10:02→20:14)
[2022-08-15] MEDS: ETHYL ALCOHOL 62% ANTISEPTIC NASAL SANITIZER 0.6 ML AMPUL NASAL SCH ×2 (10:02→20:14)
[2022-08-15] MEDS: POTASSIUM CHLORIDE 10% 40 MEQ/30 ML LIQUID UDCUP PO PRN (10:18)
[2022-08-15 10:43] LABS: C-REACTIVE PROTEIN QUANT 21.78 mg/dL (0.00-0.30)
[2022-08-15 12:20] VITALS: BP 159/95
[2022-08-15] MEDS: REMDESIVIR 100 MG in SODIUM CHLORIDE 0.9% 250 ML IV SCH (13:24)
[2022-08-15] MEDS: MEROPENEM 1 GM in SODIUM CHLORIDE 0.9% 100 ML IV SCH ×2 (14:54→20:14)
[2022-08-15 15:11] LABS: GLUCOMETER DEV NAME(LOC) 5S.1B; GLUCOSE,POINT OF CARE 193 MG/DL (70-110)
[2022-08-15 15:11] LABS: GLUCOMETER DEV NAME(LOC) 5S.1B; GLUCOSE,POINT OF CARE 124 MG/DL (70-110)
[2022-08-15] MEDS: QUEtiapine FUMARATE 100 MG TABLET PO SCH ×2 (16:10→23:13)
[2022-08-15 16:25] VITALS: BP 156/87
[2022-08-15] MEDS: INSULIN LISPRO 100 UNITS/ML SQ PRN (17:35)
[2022-08-15 20:21] LABS: GLUCOMETER DEV NAME(LOC) 5S.1B; GLUCOSE,POINT OF CARE 281 MG/DL (70-110)
[2022-08-15 20:55] VITALS: BP 139/80
[2022-08-16 00:36] LABS: GLUCOMETER DEV NAME(LOC) 5S.1B; GLUCOSE,POINT OF CARE 115 MG/DL (70-110)
[2022-08-16 01:00] VITALS: BP 137/79
[2022-08-16 05:10] VITALS: BP 152/79
[2022-08-16] MEDS: MEROPENEM 1 GM in SODIUM CHLORIDE 0.9% 100 ML IV SCH ×2 (05:43→14:53)
[2022-08-16 06:26] LABS: GLUCOMETER DEV NAME(LOC) 5S.1B; GLUCOSE,POINT OF CARE 101 MG/DL (70-110)
[2022-08-16 06:55] LABS: HEMATOCRIT 37.1 % (36-46); HEMOGLOBIN 11.9 g/dL (12.0-16.0); MEAN CORPUSCULAR HEMOGLOBIN 30.2 pg (26.0-34.0); MEAN CORPUSCULAR HGB CONC 32.2 G/dL (31.0-37.0); MEAN CORPUSCULAR VOLUME 94 fL (80-100); PLATELET COUNT (AUTO) 270 K/uL (150-450); RED BLOOD CELL COUNT(AUTO) 3.95 MIL/uL (4.00-5.20); RED CELL DISTRIBUTION WIDTH 15.3 % (11.5-14.5)
[2022-08-16 07:09] LABS: BAND NEUTROPHILS % (MANUAL) 1 % (0-5); LYMPHOCYTES % (MANUAL) 6 % (22-44); MONOCYTES % (MANUAL) 4 % (2-9); SEGMENTED NEUTROPHILS % 89 % (40-70)
[2022-08-16 07:34] LABS: ALANINE AMINOTRANSFERASE 10 U/L (12-78); ALKALINE PHOSPHATASE 128 U/L (46-116); ANION GAP 12 mmol/L (8-16); ASPARTATE AMINOTRANSFERASE 17 U/L (15-37); BILIRUBIN,TOTAL 0.4 mg/dL (0.1-1.0); C-REACTIVE PROTEIN QUANT 15.39 mg/dL (0.00-0.30); CALCIUM, TOTAL 8.9 mg/dL (8.8-10.5); CARBON DIOXIDE 24 mmol/L (22-29); CHLORIDE 112 mmol/L (98-107); CREATININE 0.79 mg/dL (0.60-1.30); FERRITIN 862 ng/mL (8-252); GLUCOSE,RANDOM 108 mg/dL (70-110); POTASSIUM 3.4 mmol/L (3.5-5.1); SODIUM SERUM 148 mmol/L (136-145); TOTAL PROTEIN, SERUM 7.4 g/dL (6.4-8.2); UREA NITROGEN, BLOOD 33 mg/dL (7-18); VANCOMYCIN,RANDOM 24.8 mcg/mL (25.0-50.0)
[2022-08-16 07:35] LABS: GLOMERULAR FILTR. RATE CALC > 60 mL/min (>60)
[2022-08-16 07:36] VITALS: BP 151/74
[2022-08-16] MEDS: QUEtiapine FUMARATE 100 MG TABLET PO SCH ×2 (08:03→17:22)
[2022-08-16] MEDS: DEXAMETHASONE SOD PHOS 4 MG/ML VIAL IVP SCH (08:03)
[2022-08-16] MEDS: HEPARIN SODIUM,PORCINE 5,000 UNITS/ML VIAL SQ SCH ×2 (08:03→17:22)
[2022-08-16] MEDS: PANTOPRAZOLE SODIUM 40 MG DR TABLET PO SCH (08:03)
[2022-08-16] MEDS: ASPIRIN 81 MG CHEWABLE TABLET PO SCH (08:03)
[2022-08-16] MEDS: DULoxetine HCL 30 MG CAPSULE PO SCH (08:05)
[2022-08-16] MEDS: BusPIRone HCL 10 MG TABLET PO SCH ×3 (08:05→21:16)
[2022-08-16] MEDS: DOCUSATE SODIUM 100 MG CAPSULE PO SCH ×2 (08:06→21:16)
[2022-08-16] MEDS: ETHYL ALCOHOL 62% ANTISEPTIC NASAL SANITIZER 0.6 ML AMPUL NASAL SCH ×2 (08:06→21:17)
[2022-08-16] MEDS: VANCOMYCIN 1GM/WATER(PEG/NADA) 200 ML IV SCH ×2 (08:06→21:16)
[2022-08-16] MEDS: POTASSIUM CHLORIDE 10% 40 MEQ/30 ML LIQUID UDCUP PO PRN ×2 (08:07→18:14)
[2022-08-16] MEDS ORDERED: GADOTERATE MEGLUMINE 10 MMOL/20 ML VIAL IVP ONE (08:21)
[2022-08-16 11:22] VITALS: BP 151/89
[2022-08-16] MEDS: REMDESIVIR 100 MG in SODIUM CHLORIDE 0.9% 250 ML IV SCH (12:48)
[2022-08-16] MEDS: INSULIN LISPRO 100 UNITS/ML SQ PRN ×2 (12:49→17:24)
[2022-08-16 15:19] VITALS: BP 133/77
[2022-08-16 18:11] LABS: GLUCOMETER DEV NAME(LOC) 5S.1B; GLUCOSE,POINT OF CARE 207 MG/DL (70-110)
[2022-08-16 18:11] LABS: GLUCOMETER DEV NAME(LOC) 5S.1B; GLUCOSE,POINT OF CARE 200 MG/DL (70-110)
[2022-08-16 23:36] VITALS: BP 156/88
[2022-08-17] MEDS: MEROPENEM 1 GM in SODIUM CHLORIDE 0.9% 100 ML IV SCH ×3 (00:25→17:00)
[2022-08-17] MEDS: HEPARIN SODIUM,PORCINE 5,000 UNITS/ML VIAL SQ SCH ×4 (00:29→23:54)
[2022-08-17] MEDS: QUEtiapine FUMARATE 100 MG TABLET PO SCH ×4 (00:29→23:54)
[2022-08-17 03:41] VITALS: BP 170/85
[2022-08-17 08:16] LABS: GLUCOMETER DEV NAME(LOC) 5S.1B; GLUCOSE,POINT OF CARE 148 MG/DL (70-110)
[2022-08-17 08:16] LABS: GLUCOMETER DEV NAME(LOC) 5S.1B; GLUCOSE,POINT OF CARE 149 MG/DL (70-110)
[2022-08-17 08:30] VITALS: BP 153/85
[2022-08-17 08:48] LABS: ANION GAP 11 mmol/L (8-16); CARBON DIOXIDE 25 mmol/L (22-29); CHLORIDE 113 mmol/L (98-107); CREATININE 0.85 mg/dL (0.60-1.30); GLOMERULAR FILTR. RATE CALC > 60 mL/min (>60); GLUCOSE,RANDOM 177 mg/dL (70-110); SODIUM SERUM 149 mmol/L (136-145); UREA NITROGEN, BLOOD 35 mg/dL (7-18)
[2022-08-17] MEDS: VANCOMYCIN 1GM/WATER(PEG/NADA) 200 ML IV SCH ×2 (08:52→20:00)
[2022-08-17] MEDS: DEXAMETHASONE SOD PHOS 4 MG/ML VIAL IVP SCH (10:07)
[2022-08-17] MEDS: DOCUSATE SODIUM 100 MG CAPSULE PO SCH ×2 (10:08→20:07)
[2022-08-17] MEDS: BusPIRone HCL 10 MG TABLET PO SCH ×3 (10:08→20:07)
[2022-08-17] MEDS: DULoxetine HCL 30 MG CAPSULE PO SCH (10:08)
[2022-08-17] MEDS: PANTOPRAZOLE SODIUM 40 MG DR TABLET PO SCH (10:08)
[2022-08-17] MEDS: ASPIRIN 81 MG CHEWABLE TABLET PO SCH (10:11)
[2022-08-17] MEDS: ETHYL ALCOHOL 62% ANTISEPTIC NASAL SANITIZER 0.6 ML AMPUL NASAL SCH ×2 (10:13→20:08)
[2022-08-17] MEDS: CLINDAMYCIN 900 MG/D5% WATER 50 ML IV SCH (12:00)
[2022-08-17 17:47] LABS: GLUCOMETER DEV NAME(LOC) 5S.1B; GLUCOSE,POINT OF CARE 186 MG/DL (70-110)
[2022-08-17 19:56] VITALS: BP 146/97
[2022-08-18] MEDS: INSULIN LISPRO 100 UNITS/ML SQ PRN ×4 (00:12→23:56)
[2022-08-18 00:26] VITALS: BP 162/83
[2022-08-18] MEDS: MEROPENEM 1 GM in SODIUM CHLORIDE 0.9% 100 ML IV SCH ×3 (04:41→21:49)
[2022-08-18 05:01] VITALS: BP 142/73
[2022-08-18 06:31] LABS: GLUCOMETER DEV NAME(LOC) 5S.1B; GLUCOSE,POINT OF CARE 124 MG/DL (70-110)
[2022-08-18 06:31] LABS: GLUCOMETER DEV NAME(LOC) 5S.1B; GLUCOSE,POINT OF CARE 170 MG/DL (70-110)
[2022-08-18] MEDS: CLINDAMYCIN 900 MG/D5% WATER 50 ML IV SCH ×3 (06:45→21:48)
[2022-08-18 07:41] LABS: ANION GAP 10 mmol/L (8-16); CALCIUM, TOTAL 8.8 mg/dL (8.8-10.5); CARBON DIOXIDE 26 mmol/L (22-29); CHLORIDE 109 mmol/L (98-107); CREATININE 0.73 mg/dL (0.60-1.30); GLUCOSE,RANDOM 119 mg/dL (70-110); SODIUM SERUM 145 mmol/L (136-145); UREA NITROGEN, BLOOD 29 mg/dL (7-18)
[2022-08-18 07:42] LABS: GLOMERULAR FILTR. RATE CALC > 60 mL/min (>60)
[2022-08-18 08:05] VITALS: BP 143/77
[2022-08-18] MEDS: DOCUSATE SODIUM 100 MG CAPSULE PO SCH ×2 (09:00→21:50)
[2022-08-18] MEDS: HEPARIN SODIUM,PORCINE 5,000 UNITS/ML VIAL SQ SCH ×3 (09:51→23:54)
[2022-08-18] MEDS: DEXAMETHASONE SOD PHOS 4 MG/ML VIAL IVP SCH (09:52)
[2022-08-18] MEDS: QUEtiapine FUMARATE 100 MG TABLET PO SCH ×3 (09:52→23:55)
[2022-08-18] MEDS: BusPIRone HCL 10 MG TABLET PO SCH ×3 (09:52→21:50)
[2022-08-18] MEDS: ASPIRIN 81 MG CHEWABLE TABLET PO SCH (09:54)
[2022-08-18] MEDS: PANTOPRAZOLE SODIUM 40 MG DR TABLET PO SCH (09:54)
[2022-08-18] MEDS: DULoxetine HCL 30 MG CAPSULE PO SCH (09:54)
[2022-08-18] MEDS: VANCOMYCIN 1GM/WATER(PEG/NADA) 200 ML IV SCH ×2 (09:59→21:48)
[2022-08-18] MEDS: ETHYL ALCOHOL 62% ANTISEPTIC NASAL SANITIZER 0.6 ML AMPUL NASAL SCH ×2 (10:25→21:54)
[2022-08-18] MEDS ORDERED: POTASSIUM CHL 10 MEQ/WATER 50 ML IV PRN (11:00)
[2022-08-18 11:53] VITALS: BP 149/84
[2022-08-18] MEDS ORDERED: SODIUM CHLORIDE 0.9% 1,000 ML ONE (15:50)
[2022-08-18 16:02] VITALS: BP 150/83
[2022-08-18] MEDS: POTASSIUM CHLORIDE 10% 40 MEQ/30 ML LIQUID UDCUP PO PRN (18:29)
[2022-08-18 20:40] VITALS: BP 147/79
[2022-08-18 23:56] LABS: GLUCOMETER DEV NAME(LOC) 5S.1B; GLUCOSE,POINT OF CARE 167 MG/DL (70-110)
[2022-08-18 23:56] LABS: GLUCOMETER DEV NAME(LOC) 5S.1B; GLUCOSE,POINT OF CARE 163 MG/DL (70-110)
[2022-08-18 23:56] LABS: GLUCOMETER DEV NAME(LOC) 5S.1B; GLUCOSE,POINT OF CARE 187 MG/DL (70-110)
[2022-08-19] VITALS (7 sets, daily range): BP systolic 133–175; BP diastolic 79–99
[2022-08-19] MEDS: MEROPENEM 1 GM in SODIUM CHLORIDE 0.9% 100 ML IV SCH ×3 (05:14→22:12)
[2022-08-19] MEDS: CLINDAMYCIN 900 MG/D5% WATER 50 ML IV SCH ×3 (05:15→22:59)
[2022-08-19 06:35] LABS: HEMATOCRIT 38.2 % (36-46); HEMOGLOBIN 12.3 g/dL (12.0-16.0); MEAN CORPUSCULAR HEMOGLOBIN 29.8 pg (26.0-34.0); MEAN CORPUSCULAR HGB CONC 32.2 G/dL (31.0-37.0); MEAN CORPUSCULAR VOLUME 93 fL (80-100); PLATELET COUNT (AUTO) 283 K/uL (150-450); RED BLOOD CELL COUNT(AUTO) 4.13 MIL/uL (4.00-5.20); RED CELL DISTRIBUTION WIDTH 15.7 % (11.5-14.5)
[2022-08-19 06:52] LABS: BAND NEUTROPHILS % (MANUAL) 2 % (0-5); LYMPHOCYTES % (MANUAL) 14 % (22-44); MONOCYTES % (MANUAL) 5 % (2-9); SEGMENTED NEUTROPHILS % 79 % (40-70)
[2022-08-19 07:00] LABS: ANION GAP 11 mmol/L (8-16); CALCIUM, TOTAL 8.5 mg/dL (8.8-10.5); CARBON DIOXIDE 24 mmol/L (22-29); CHLORIDE 104 mmol/L (98-107); CREATININE 0.66 mg/dL (0.60-1.30); GLUCOSE,RANDOM 114 mg/dL (70-110); SODIUM SERUM 139 mmol/L (136-145); UREA NITROGEN, BLOOD 17 mg/dL (7-18); VANCOMYCIN,RANDOM 23.3 mcg/mL (25.0-50.0)
[2022-08-19 07:06] LABS: GLOMERULAR FILTR. RATE CALC > 60 mL/min (>60); POTASSIUM 2.8 mmol/L (3.5-5.1)
[2022-08-19] MEDS: DEXAMETHASONE SOD PHOS 4 MG/ML VIAL IVP SCH (09:58)
[2022-08-19] MEDS: POTASSIUM CHL 10 MEQ/WATER 50 ML IV PRN (09:58)
[2022-08-19] MEDS: ASPIRIN 81 MG CHEWABLE TABLET PO SCH (09:58)
[2022-08-19] MEDS: HEPARIN SODIUM,PORCINE 5,000 UNITS/ML VIAL SQ SCH ×2 (09:59→16:00)
[2022-08-19] MEDS: QUEtiapine FUMARATE 100 MG TABLET PO SCH ×2 (09:59→18:20)
[2022-08-19] MEDS: DULoxetine HCL 30 MG CAPSULE PO SCH (09:59)
[2022-08-19] MEDS: DOCUSATE SODIUM 100 MG CAPSULE PO SCH ×2 (09:59→20:47)
[2022-08-19] MEDS: PANTOPRAZOLE SODIUM 40 MG DR TABLET PO SCH (09:59)
[2022-08-19] MEDS: BusPIRone HCL 10 MG TABLET PO SCH ×3 (10:00→20:47)
[2022-08-19] MEDS: ETHYL ALCOHOL 62% ANTISEPTIC NASAL SANITIZER 0.6 ML AMPUL NASAL SCH ×2 (10:01→20:47)
[2022-08-19] MEDS: VANCOMYCIN 1GM/WATER(PEG/NADA) 200 ML IV SCH (10:01)
[2022-08-19] MEDS: POTASSIUM CHLORIDE 10% 40 MEQ/30 ML LIQUID UDCUP PO PRN (11:25)
[2022-08-19] MEDS ORDERED: SODIUM CHLORIDE 0.9% 500 ML IV ONE (14:43)
[2022-08-19] MEDS: INSULIN LISPRO 100 UNITS/ML SQ PRN ×2 (18:33→21:23)
[2022-08-19] MEDS: VANCOMYCIN HCL 750 MG in DEXTROSE 5%-WATER 250 ML IV SCH (20:47)
[2022-08-19 22:41] LABS: GLUCOMETER DEV NAME(LOC) 5S.1B; GLUCOSE,POINT OF CARE 90 MG/DL (70-110)
[2022-08-19 22:41] LABS: GLUCOMETER DEV NAME(LOC) 5S.1B; GLUCOSE,POINT OF CARE 288 MG/DL (70-110)
[2022-08-19 22:41] LABS: GLUCOMETER DEV NAME(LOC) 5S.2B; GLUCOSE,POINT OF CARE 227 MG/DL (70-110)
[2022-08-19 22:41] LABS: GLUCOMETER DEV NAME(LOC) 5S.1B; GLUCOSE,POINT OF CARE 138 MG/DL (70-110)
[2022-08-20] MEDS: HEPARIN SODIUM,PORCINE 5,000 UNITS/ML VIAL SQ SCH ×4 (00:25→23:38)
[2022-08-20] MEDS: QUEtiapine FUMARATE 100 MG TABLET PO SCH ×4 (00:25→23:38)
[2022-08-20] MEDS: LORazepam 2 MG/ML VIAL IVP PRN ×2 (02:48→06:29)
[2022-08-20 04:59] VITALS: BP 132/77
[2022-08-20] MEDS: MEROPENEM 1 GM in SODIUM CHLORIDE 0.9% 100 ML IV SCH ×3 (05:03→23:38)
[2022-08-20] MEDS: INSULIN LISPRO 100 UNITS/ML SQ PRN ×3 (05:42→20:04)
[2022-08-20 05:58] LABS: ANION GAP 6 mmol/L (8-16); CALCIUM, TOTAL 8.1 mg/dL (8.8-10.5); CARBON DIOXIDE 25 mmol/L (22-29); CHLORIDE 103 mmol/L (98-107); CREATININE 0.78 mg/dL (0.60-1.30); GLUCOSE,RANDOM 152 mg/dL (70-110); SODIUM SERUM 134 mmol/L (136-145); UREA NITROGEN, BLOOD 15 mg/dL (7-18)
[2022-08-20 06:00] LABS: GLOMERULAR FILTR. RATE CALC > 60 mL/min (>60); POTASSIUM 2.7 mmol/L (3.5-5.1)
[2022-08-20] MEDS: CLINDAMYCIN 900 MG/D5% WATER 50 ML IV SCH (06:15)
[2022-08-20] MEDS: HYDROCODONE/ACETAMINOPHEN 5-325 MG TABLET PO PRN (06:15)
[2022-08-20 06:21] LABS: GLUCOMETER DEV NAME(LOC) 5S.1B; GLUCOSE,POINT OF CARE 131 MG/DL (70-110)
[2022-08-20] MEDS: POTASSIUM CHL 10 MEQ/WATER 50 ML IV PRN ×4 (06:57→15:22)
[2022-08-20] MEDS: ASPIRIN 81 MG CHEWABLE TABLET PO SCH (09:00)
[2022-08-20] MEDS: DOCUSATE SODIUM 100 MG CAPSULE PO SCH ×2 (10:04→19:46)
[2022-08-20] MEDS: VANCOMYCIN HCL 750 MG in DEXTROSE 5%-WATER 250 ML IV SCH ×2 (10:04→19:46)
[2022-08-20] MEDS: PANTOPRAZOLE SODIUM 40 MG DR TABLET PO SCH (10:04)
[2022-08-20] MEDS: DULoxetine HCL 30 MG CAPSULE PO SCH (10:05)
[2022-08-20] MEDS: ETHYL ALCOHOL 62% ANTISEPTIC NASAL SANITIZER 0.6 ML AMPUL NASAL SCH ×2 (10:06→19:46)
[2022-08-20] MEDS: BusPIRone HCL 10 MG TABLET PO SCH ×3 (10:07→19:46)
[2022-08-20 11:33] VITALS: BP 138/75
[2022-08-20] MEDS ORDERED: SODIUM CHLORIDE 0.9% 250 ML IV ONE (13:23)
[2022-08-20 15:40] VITALS: BP 111/76
[2022-08-20 19:01] LABS: GLUCOMETER DEV NAME(LOC) 5S.2B; GLUCOSE,POINT OF CARE 139 MG/DL (70-110)
[2022-08-20 19:01] LABS: GLUCOMETER DEV NAME(LOC) 5S.1B; GLUCOSE,POINT OF CARE 194 MG/DL (70-110)
[2022-08-20 19:27] VITALS: BP 143/80
[2022-08-20] MEDS ORDERED: SODIUM CHLORIDE 0.9% 500 ML IV ONE (19:53)
[2022-08-20 21:46] LABS: GLUCOMETER DEV NAME(LOC) 5S.1B; GLUCOSE,POINT OF CARE 147 MG/DL (70-110)
[2022-08-20 23:37] VITALS: BP 129/72
[2022-08-20] MEDS: POTASSIUM CHLORIDE 10% 40 MEQ/30 ML LIQUID UDCUP PO PRN (23:53)
[2022-08-21 05:00] VITALS: BP 109/74
[2022-08-21] MEDS: MEROPENEM 1 GM in SODIUM CHLORIDE 0.9% 100 ML IV SCH (05:03)
[2022-08-21 08:10] VITALS: BP 136/92
[2022-08-21] MEDS: DOCUSATE SODIUM 100 MG CAPSULE PO SCH ×2 (08:31→20:18)
[2022-08-21] MEDS: DULoxetine HCL 30 MG CAPSULE PO SCH (08:31)
[2022-08-21] MEDS: BusPIRone HCL 10 MG TABLET PO SCH ×3 (08:32→20:18)
[2022-08-21] MEDS: QUEtiapine FUMARATE 100 MG TABLET PO SCH ×3 (08:32→23:49)
[2022-08-21] MEDS: ETHYL ALCOHOL 62% ANTISEPTIC NASAL SANITIZER 0.6 ML AMPUL NASAL SCH ×2 (08:32→19:54)
[2022-08-21] MEDS: ASPIRIN 81 MG CHEWABLE TABLET PO SCH (08:32)
[2022-08-21] MEDS: HEPARIN SODIUM,PORCINE 5,000 UNITS/ML VIAL SQ SCH ×3 (08:32→23:49)
[2022-08-21] MEDS: VANCOMYCIN HCL 750 MG in DEXTROSE 5%-WATER 250 ML IV SCH ×2 (08:49→19:54)
[2022-08-21 09:29] LABS: BASOPHILS % (AUTO) 0.6 % (0.0-2.0); EOSINOPHILS % (AUTO) 0.7 % (1.0-6.0); HEMATOCRIT 30.7 % (36-46); HEMOGLOBIN 10.6 g/dL (12.0-16.0); LYMPHOCYTES # (AUTO) 2.3 K/uL (1.0-4.8); LYMPHOCYTES % (AUTO) 16.6 % (22.0-44.0); MEAN CORPUSCULAR HEMOGLOBIN 31.8 pg (26.0-34.0); MEAN CORPUSCULAR HGB CONC 34.7 G/dL (31.0-37.0); MEAN CORPUSCULAR VOLUME 92 fL (80-100); MONOCYTES # (AUTO) 1.1 K/uL (0.1-1.0); MONOCYTES % (AUTO) 7.7 % (2.0-9.0); NEUTROPHILS # (AUTO) 10.2 K/uL (1.8-7.7); NEUTROPHILS % (AUTO) 74.4 % (40.0-70.0); PLATELET COUNT (AUTO) 254 K/uL (150-450); RED BLOOD CELL COUNT(AUTO) 3.35 MIL/uL (4.00-5.20)
[2022-08-21 09:36] LABS: ANION GAP 7 mmol/L (8-16); C-REACTIVE PROTEIN QUANT 8.36 mg/dL (0.00-0.30); CALCIUM, TOTAL 8.2 mg/dL (8.8-10.5); CARBON DIOXIDE 25 mmol/L (22-29); CHLORIDE 101 mmol/L (98-107); CREATININE 0.76 mg/dL (0.60-1.30); GLOMERULAR FILTR. RATE CALC > 60 mL/min (>60); GLUCOSE,RANDOM 163 mg/dL (70-110); POTASSIUM 3.3 mmol/L (3.5-5.1); SODIUM SERUM 133 mmol/L (136-145); UREA NITROGEN, BLOOD 12 mg/dL (7-18)
[2022-08-21] MEDS: PANTOPRAZOLE SODIUM 40 MG DR TABLET PO SCH (11:07)
[2022-08-21 15:45] VITALS: BP 135/74
[2022-08-21] MEDS ORDERED: SODIUM CHLORIDE 0.9% 250 ML IV ONE (16:15)
[2022-08-21] MEDS: POTASSIUM CHLORIDE 20 MEQ ER TABLET PO PRN (16:26)
[2022-08-21] MEDS: ERTAPENEM SODIUM 1 GM in SODIUM CHLORIDE 0.9% 50 ML IV SCH (16:28)
[2022-08-21 19:30] VITALS: BP 131/77
[2022-08-21 19:35] LABS: GLUCOMETER DEV NAME(LOC) 5S.1B; GLUCOSE,POINT OF CARE 138 MG/DL (70-110)
[2022-08-21] MEDS: INSULIN LISPRO 100 UNITS/ML SQ PRN (20:23)
[2022-08-21 22:01] LABS: GLUCOMETER DEV NAME(LOC) 6N.2B; GLUCOSE,POINT OF CARE 167 MG/DL (70-110)
[2022-08-22 04:00] VITALS: BP 128/101
[2022-08-22 06:46] LABS: GLUCOMETER DEV NAME(LOC) 6N.2B; GLUCOSE,POINT OF CARE 124 MG/DL (70-110)
[2022-08-22 07:55] VITALS: BP 130/99
[2022-08-22] MEDS: VANCOMYCIN HCL 750 MG in DEXTROSE 5%-WATER 250 ML IV SCH ×2 (08:32→21:04)
[2022-08-22] MEDS: HEPARIN SODIUM,PORCINE 5,000 UNITS/ML VIAL SQ SCH ×3 (08:42→23:14)
[2022-08-22] MEDS: DULoxetine HCL 30 MG CAPSULE PO SCH (08:42)
[2022-08-22] MEDS: DOCUSATE SODIUM 100 MG CAPSULE PO SCH ×2 (08:42→21:04)
[2022-08-22] MEDS: ETHYL ALCOHOL 62% ANTISEPTIC NASAL SANITIZER 0.6 ML AMPUL NASAL SCH ×2 (08:42→21:04)
[2022-08-22] MEDS: PANTOPRAZOLE SODIUM 40 MG DR TABLET PO SCH (08:43)
[2022-08-22] MEDS: ASPIRIN 81 MG CHEWABLE TABLET PO SCH (08:43)
[2022-08-22] MEDS: BusPIRone HCL 10 MG TABLET PO SCH ×3 (08:43→21:04)
[2022-08-22] MEDS: QUEtiapine FUMARATE 100 MG TABLET PO SCH ×3 (08:43→23:36)
[2022-08-22 09:54] LABS: ANION GAP 8 mmol/L (8-16); CALCIUM, TOTAL 8.4 mg/dL (8.8-10.5); CARBON DIOXIDE 25 mmol/L (22-29); CHLORIDE 102 mmol/L (98-107); CREATININE 0.78 mg/dL (0.60-1.30); GLOMERULAR FILTR. RATE CALC > 60 mL/min (>60); GLUCOSE,RANDOM 163 mg/dL (70-110); POTASSIUM 3.6 mmol/L (3.5-5.1); SODIUM SERUM 135 mmol/L (136-145); UREA NITROGEN, BLOOD 10 mg/dL (7-18)
[2022-08-22] MEDS: INSULIN LISPRO 100 UNITS/ML SQ PRN ×2 (12:18→18:00)
[2022-08-22 13:36] LABS: GLUCOMETER DEV NAME(LOC) 6N.1; GLUCOSE,POINT OF CARE 149 MG/DL (70-110)
[2022-08-22 16:46] VITALS: BP 93/52
[2022-08-22] MEDS: ERTAPENEM SODIUM 1 GM in SODIUM CHLORIDE 0.9% 50 ML IV SCH (17:42)
[2022-08-22] MEDS ORDERED: SODIUM CHLORIDE 0.9% 250 ML IV ONE (17:46)
[2022-08-22 19:54] LABS: HEMOGLOBIN 9.5 g/dL (12.0-16.0)
[2022-08-22 20:00] VITALS: BP 94/45
[2022-08-22 20:01] LABS: GLUCOMETER DEV NAME(LOC) 6N.1; GLUCOSE,POINT OF CARE 151 MG/DL (70-110)
[2022-08-22 21:19] VITALS: BP 105/65
[2022-08-23 00:21] VITALS: BP 107/68
[2022-08-23] MEDS: OLANZapine 5 MG RAPDIS TABLET PO PRN (03:16)
[2022-08-23] MEDS: HYDROCODONE/ACETAMINOPHEN 5-325 MG TABLET PO PRN (03:16)
[2022-08-23 05:03] VITALS: BP 107/71
[2022-08-23] MEDS: INSULIN LISPRO 100 UNITS/ML SQ PRN ×3 (06:24→20:48)
[2022-08-23 06:51] LABS: GLUCOMETER DEV NAME(LOC) 6N.1; GLUCOSE,POINT OF CARE 154 MG/DL (70-110)
[2022-08-23 08:10] VITALS: BP 123/73
[2022-08-23 09:16] LABS: BASOPHILS % (AUTO) 0.6 % (0.0-2.0); EOSINOPHILS % (AUTO) 0.6 % (1.0-6.0); HEMATOCRIT 33.1 % (36-46); HEMOGLOBIN 10.8 g/dL (12.0-16.0); LYMPHOCYTES # (AUTO) 2.2 K/uL (1.0-4.8); LYMPHOCYTES % (AUTO) 17.2 % (22.0-44.0); MEAN CORPUSCULAR HEMOGLOBIN 30.8 pg (26.0-34.0); MEAN CORPUSCULAR HGB CONC 32.6 G/dL (31.0-37.0); MEAN CORPUSCULAR VOLUME 95 fL (80-100); MONOCYTES # (AUTO) 0.8 K/uL (0.1-1.0); MONOCYTES % (AUTO) 6.4 % (2.0-9.0); NEUTROPHILS # (AUTO) 9.6 K/uL (1.8-7.7); NEUTROPHILS % (AUTO) 75.2 % (40.0-70.0); PLATELET COUNT (AUTO) 267 K/uL (150-450); RED CELL DISTRIBUTION WIDTH 16.1 % (11.5-14.5)
[2022-08-23 09:38] LABS: C-REACTIVE PROTEIN QUANT 14.14 mg/dL (0.00-0.30); CALCIUM, TOTAL 8.9 mg/dL (8.8-10.5); CREATININE 0.96 mg/dL (0.60-1.30); VANCOMYCIN,RANDOM 25.7 mcg/mL (25.0-50.0)
[2022-08-23] MEDS: DOCUSATE SODIUM 100 MG CAPSULE PO SCH ×2 (09:41→20:38)
[2022-08-23] MEDS: PANTOPRAZOLE SODIUM 40 MG DR TABLET PO SCH (09:41)
[2022-08-23] MEDS: DULoxetine HCL 30 MG CAPSULE PO SCH (09:42)
[2022-08-23] MEDS: BusPIRone HCL 10 MG TABLET PO SCH ×3 (09:42→20:38)
[2022-08-23] MEDS: ASCORBIC ACID 500 MG TABLET PO SCH (09:42)
[2022-08-23] MEDS: ASPIRIN 81 MG CHEWABLE TABLET PO SCH (09:42)
[2022-08-23] MEDS: MULTIVITAMINS WITH MINERALS, THERAPEUTIC TABLET PO SCH (09:43)
[2022-08-23] MEDS: QUEtiapine FUMARATE 100 MG TABLET PO SCH ×2 (09:43→17:29)
[2022-08-23] MEDS: ETHYL ALCOHOL 62% ANTISEPTIC NASAL SANITIZER 0.6 ML AMPUL NASAL SCH ×2 (09:43→20:38)
[2022-08-23] MEDS: HEPARIN SODIUM,PORCINE 5,000 UNITS/ML VIAL SQ SCH ×2 (09:43→17:29)
[2022-08-23] MEDS: VANCOMYCIN HCL 750 MG in DEXTROSE 5%-WATER 250 ML IV SCH (09:43)
[2022-08-23 10:39] LABS: COVID AG,FIA SOURCE NASAL SWAB
[2022-08-23 14:11] LABS: GLUCOMETER DEV NAME(LOC) 6N.1; GLUCOSE,POINT OF CARE 166 MG/DL (70-110)
[2022-08-23 16:10] VITALS: BP 99/59
[2022-08-23] MEDS: ERTAPENEM SODIUM 1 GM in SODIUM CHLORIDE 0.9% 50 ML IV SCH (17:29)
[2022-08-23] MEDS ORDERED: SODIUM CHLORIDE 0.9% 500 ML IV ONE (17:37)
[2022-08-23 19:51] LABS: GLUCOMETER DEV NAME(LOC) 6N.2B; GLUCOSE,POINT OF CARE 127 MG/DL (70-110)
[2022-08-23 19:51] LABS: GLUCOMETER DEV NAME(LOC) 6N.2B; GLUCOSE,POINT OF CARE 114 MG/DL (70-110)
[2022-08-23 20:21] VITALS: BP 108/64
[2022-08-23] MEDS: VANCOMYCIN HCL 500 MG in DEXTROSE 5%-WATER 100 ML IV SCH (20:38)
[2022-08-24] MEDS: QUEtiapine FUMARATE 100 MG TABLET PO SCH ×3 (00:02→15:27)
[2022-08-24] MEDS: HEPARIN SODIUM,PORCINE 5,000 UNITS/ML VIAL SQ SCH ×3 (00:02→15:27)
[2022-08-24 03:26] LABS: GLUCOMETER DEV NAME(LOC) 6N.1; GLUCOSE,POINT OF CARE 178 MG/DL (70-110)
[2022-08-24 04:38] VITALS: BP 133/79
[2022-08-24 06:52] LABS: GLUCOMETER DEV NAME(LOC) 6N.1; GLUCOSE,POINT OF CARE 121 MG/DL (70-110)
[2022-08-24 07:00] VITALS: BP 111/69
[2022-08-24] MEDS: VANCOMYCIN HCL 500 MG in DEXTROSE 5%-WATER 100 ML IV SCH (08:59)
[2022-08-24] MEDS: PANTOPRAZOLE SODIUM 40 MG DR TABLET PO SCH (09:00)
[2022-08-24] MEDS: DULoxetine HCL 30 MG CAPSULE PO SCH (09:00)
[2022-08-24] MEDS: DOCUSATE SODIUM 100 MG CAPSULE PO SCH ×2 (09:00→20:35)
[2022-08-24] MEDS: ASCORBIC ACID 500 MG TABLET PO SCH (09:00)
[2022-08-24] MEDS: BusPIRone HCL 10 MG TABLET PO SCH ×3 (09:01→20:35)
[2022-08-24] MEDS: ETHYL ALCOHOL 62% ANTISEPTIC NASAL SANITIZER 0.6 ML AMPUL NASAL SCH ×2 (09:01→20:35)
[2022-08-24] MEDS: MULTIVITAMINS WITH MINERALS, THERAPEUTIC TABLET PO SCH (09:01)
[2022-08-24] MEDS: ASPIRIN 81 MG CHEWABLE TABLET PO SCH (09:01)
[2022-08-24] MEDS ORDERED: VANCOMYCIN HCL 500 MG in DEXTROSE 5%-WATER 100 ML IV ONE (10:30)
[2022-08-24] MEDS: INSULIN LISPRO 100 UNITS/ML SQ PRN (11:30)
[2022-08-24 12:38] LABS: ANION GAP 4 mmol/L (8-16); CALCIUM, TOTAL 8.3 mg/dL (8.8-10.5); CARBON DIOXIDE 28 mmol/L (22-29); CHLORIDE 102 mmol/L (98-107); CREATININE 0.87 mg/dL (0.60-1.30); GLOMERULAR FILTR. RATE CALC > 60 mL/min (>60); GLUCOSE,RANDOM 173 mg/dL (70-110); POTASSIUM 3.4 mmol/L (3.5-5.1); SODIUM SERUM 134 mmol/L (136-145); UREA NITROGEN, BLOOD 11 mg/dL (7-18)
[2022-08-24 15:26] VITALS: BP 116/69
[2022-08-24] MEDS: POTASSIUM CHLORIDE 20 MEQ ER TABLET PO PRN (15:31)
[2022-08-24 16:02] LABS: GLUCOMETER DEV NAME(LOC) 6N.1; GLUCOSE,POINT OF CARE 197 MG/DL (70-110)
[2022-08-24] MEDS: ERTAPENEM SODIUM 1 GM in SODIUM CHLORIDE 0.9% 50 ML IV SCH (16:04)
[2022-08-24 20:13] LABS: GLUCOMETER DEV NAME(LOC) 6N.1; GLUCOSE,POINT OF CARE 125 MG/DL (70-110)
[2022-08-24 20:55] VITALS: BP 140/79
[2022-08-24 22:46] LABS: GLUCOMETER DEV NAME(LOC) 6N.2B; GLUCOSE,POINT OF CARE 128 MG/DL (70-110)
[2022-08-25] MEDS: HEPARIN SODIUM,PORCINE 5,000 UNITS/ML VIAL SQ SCH ×3 (00:03→16:00)
[2022-08-25] MEDS: QUEtiapine FUMARATE 100 MG TABLET PO SCH ×3 (00:03→17:06)
[2022-08-25 04:59] VITALS: BP 124/72
[2022-08-25] MEDS: INSULIN LISPRO 100 UNITS/ML SQ PRN (05:05)
[2022-08-25 07:02] LABS: BASOPHILS % (AUTO) 0.4 % (0.0-2.0); EOSINOPHILS % (AUTO) 0.6 % (1.0-6.0); HEMOGLOBIN 8.7 g/dL (12.0-16.0); LYMPHOCYTES # (AUTO) 1.5 K/uL (1.0-4.8); LYMPHOCYTES % (AUTO) 18.8 % (22.0-44.0); MEAN CORPUSCULAR HEMOGLOBIN 31.6 pg (26.0-34.0); MEAN CORPUSCULAR HGB CONC 34.1 G/dL (31.0-37.0); MEAN CORPUSCULAR VOLUME 93 fL (80-100); MONOCYTES # (AUTO) 0.8 K/uL (0.1-1.0); MONOCYTES % (AUTO) 9.3 % (2.0-9.0); NEUTROPHILS # (AUTO) 5.8 K/uL (1.8-7.7); NEUTROPHILS % (AUTO) 70.9 % (40.0-70.0); PLATELET COUNT (AUTO) 275 K/uL (150-450); RED BLOOD CELL COUNT(AUTO) 2.74 MIL/uL (4.00-5.20)
[2022-08-25 07:08] LABS: HEMATOCRIT 25.4 % (36-46)
[2022-08-25 07:22] LABS: C-REACTIVE PROTEIN QUANT 8.54 mg/dL (0.00-0.30); CALCIUM, TOTAL 8.7 mg/dL (8.8-10.5); CREATININE 1.02 mg/dL (0.60-1.30); POTASSIUM 4.1 mmol/L (3.5-5.1)
[2022-08-25] MEDS: VANCOMYCIN 1GM/WATER(PEG/NADA) 200 ML IV SCH ×2 (08:00→11:53)
[2022-08-25 08:09] VITALS: BP 118/70
[2022-08-25] MEDS: DULoxetine HCL 30 MG CAPSULE PO SCH (08:13)
[2022-08-25] MEDS: BusPIRone HCL 10 MG TABLET PO SCH ×4 (08:13→21:28)
[2022-08-25] MEDS: ASCORBIC ACID 500 MG TABLET PO SCH (08:13)
[2022-08-25] MEDS: PANTOPRAZOLE SODIUM 40 MG DR TABLET PO SCH (08:13)
[2022-08-25] MEDS: DOCUSATE SODIUM 100 MG CAPSULE PO SCH ×3 (08:13→21:28)
[2022-08-25] MEDS: MULTIVITAMINS WITH MINERALS, THERAPEUTIC TABLET PO SCH (08:13)
[2022-08-25] MEDS: ETHYL ALCOHOL 62% ANTISEPTIC NASAL SANITIZER 0.6 ML AMPUL NASAL SCH ×3 (08:19→21:29)
[2022-08-25] MEDS: ASPIRIN 81 MG CHEWABLE TABLET PO SCH (08:20)
[2022-08-25 09:43] LABS: GLUCOMETER DEV NAME(LOC) 6N.2B; GLUCOSE,POINT OF CARE 173 MG/DL (70-110)
[2022-08-25 14:07] LABS: GLUCOMETER DEV NAME(LOC) 6N.1; GLUCOSE,POINT OF CARE 159 MG/DL (70-110)
[2022-08-25 16:21] VITALS: BP 113/54
[2022-08-25] MEDS: ERTAPENEM SODIUM 1 GM in SODIUM CHLORIDE 0.9% 50 ML IV SCH (17:07)
[2022-08-26] MEDS: DOCUSATE SODIUM 100 MG CAPSULE PO SCH ×4 (01:51→23:35)
[2022-08-26] MEDS: QUEtiapine FUMARATE 100 MG TABLET PO SCH ×5 (01:51→23:35)
[2022-08-26] MEDS: BusPIRone HCL 10 MG TABLET PO SCH ×5 (01:51→23:35)
[2022-08-26 03:54] LABS: GLUCOMETER DEV NAME(LOC) 6N.2B; GLUCOSE,POINT OF CARE 124 MG/DL (70-110)
[2022-08-26 07:34] VITALS: BP 122/65
[2022-08-26] MEDS: HEPARIN SODIUM,PORCINE 5,000 UNITS/ML VIAL SQ SCH ×4 (08:00→23:37)
[2022-08-26] MEDS: VANCOMYCIN 1GM/WATER(PEG/NADA) 200 ML IV SCH (08:22)
[2022-08-26] MEDS ORDERED: SODIUM CHLORIDE 0.9% 500 ML IV ONE (11:29)
[2022-08-26] MEDS: ASPIRIN 81 MG CHEWABLE TABLET PO SCH (11:35)
[2022-08-26] MEDS: DULoxetine HCL 30 MG CAPSULE PO SCH (11:35)
[2022-08-26] MEDS: MULTIVITAMINS WITH MINERALS, THERAPEUTIC TABLET PO SCH (11:35)
[2022-08-26] MEDS: PANTOPRAZOLE SODIUM 40 MG DR TABLET PO SCH (11:35)
[2022-08-26] MEDS: ASCORBIC ACID 500 MG TABLET PO SCH (11:36)
[2022-08-26] MEDS: ETHYL ALCOHOL 62% ANTISEPTIC NASAL SANITIZER 0.6 ML AMPUL NASAL SCH ×2 (11:36→21:00)
[2022-08-26 12:01] LABS: GLUCOMETER DEV NAME(LOC) 6N.2B; GLUCOSE,POINT OF CARE 137 MG/DL (70-110)
[2022-08-26] MEDS: ERTAPENEM SODIUM 1 GM in SODIUM CHLORIDE 0.9% 50 ML IV SCH (16:52)
[2022-08-26] MEDS: INSULIN LISPRO 100 UNITS/ML SQ PRN (17:42)
[2022-08-26 21:06] LABS: GLUCOMETER DEV NAME(LOC) 6N.1; GLUCOSE,POINT OF CARE 150 MG/DL (70-110)
[2022-08-27 06:00] VITALS: BP 104/66
[2022-08-27 07:39] LABS: CALCIUM, TOTAL 8.9 mg/dL (8.8-10.5); CREATININE 1.23 mg/dL (0.60-1.30); POTASSIUM 4.1 mmol/L (3.5-5.1); VANCOMYCIN,RANDOM 21.8 mcg/mL (25.0-50.0)
[2022-08-27] MEDS: HEPARIN SODIUM,PORCINE 5,000 UNITS/ML VIAL SQ SCH ×3 (08:00→23:09)
[2022-08-27] MEDS: VANCOMYCIN 1GM/WATER(PEG/NADA) 200 ML IV SCH (08:26)
[2022-08-27] MEDS: ASCORBIC ACID 500 MG TABLET PO SCH (08:26)
[2022-08-27] MEDS: BusPIRone HCL 10 MG TABLET PO SCH ×3 (08:26→21:51)
[2022-08-27] MEDS: QUEtiapine FUMARATE 100 MG TABLET PO SCH ×3 (08:26→23:04)
[2022-08-27] MEDS: MULTIVITAMINS WITH MINERALS, THERAPEUTIC TABLET PO SCH (08:26)
[2022-08-27] MEDS: ASPIRIN 81 MG CHEWABLE TABLET PO SCH (08:26)
[2022-08-27] MEDS: DOCUSATE SODIUM 100 MG CAPSULE PO SCH ×2 (08:26→21:00)
[2022-08-27] MEDS: PANTOPRAZOLE SODIUM 40 MG DR TABLET PO SCH (08:26)
[2022-08-27] MEDS: DULoxetine HCL 30 MG CAPSULE PO SCH (08:26)
[2022-08-27] MEDS: ETHYL ALCOHOL 62% ANTISEPTIC NASAL SANITIZER 0.6 ML AMPUL NASAL SCH ×2 (08:30→21:51)
[2022-08-27 08:44] VITALS: BP 115/66
[2022-08-27 09:16] LABS: GLUCOMETER DEV NAME(LOC) 6N.1; GLUCOSE,POINT OF CARE 139 MG/DL (70-110)
[2022-08-27] MEDS: INSULIN LISPRO 100 UNITS/ML SQ PRN (11:39)
[2022-08-27 15:12] VITALS: BP 118/73
[2022-08-27] MEDS: ERTAPENEM SODIUM 1 GM in SODIUM CHLORIDE 0.9% 50 ML IV SCH (16:47)
[2022-08-27 19:30] VITALS: BP 106/71
[2022-08-27 22:07] LABS: GLUCOMETER DEV NAME(LOC) 6N.2B; GLUCOSE,POINT OF CARE 173 MG/DL (70-110)
[2022-08-27 22:07] LABS: GLUCOMETER DEV NAME(LOC) 6N.2B; GLUCOSE,POINT OF CARE 123 MG/DL (70-110)
[2022-08-27 23:46] LABS: GLUCOMETER DEV NAME(LOC) 6N.1; GLUCOSE,POINT OF CARE 153 MG/DL (70-110)
[2022-08-28 04:50] VITALS: BP 145/85
[2022-08-28 07:18] VITALS: BP 138/78
[2022-08-28] MEDS: HEPARIN SODIUM,PORCINE 5,000 UNITS/ML VIAL SQ SCH ×2 (08:00→16:00)
[2022-08-28] MEDS ORDERED: VANCOMYCIN HCL 750 MG in DEXTROSE 5%-WATER 250 ML IV SCH (08:00)
[2022-08-28] MEDS: DULoxetine HCL 30 MG CAPSULE PO SCH (09:13)
[2022-08-28] MEDS: QUEtiapine FUMARATE 100 MG TABLET PO SCH ×2 (09:14→16:09)
[2022-08-28] MEDS: BusPIRone HCL 10 MG TABLET PO SCH ×2 (09:15→16:09)
[2022-08-28] MEDS: DOCUSATE SODIUM 100 MG CAPSULE PO SCH (09:15)
[2022-08-28] MEDS: MULTIVITAMINS WITH MINERALS, THERAPEUTIC TABLET PO SCH (09:15)
[2022-08-28] MEDS: ASPIRIN 81 MG CHEWABLE TABLET PO SCH (09:16)
[2022-08-28] MEDS: ASCORBIC ACID 500 MG TABLET PO SCH (09:16)
[2022-08-28] MEDS: ETHYL ALCOHOL 62% ANTISEPTIC NASAL SANITIZER 0.6 ML AMPUL NASAL SCH (09:18)
[2022-08-28] MEDS: PANTOPRAZOLE SODIUM 40 MG DR TABLET PO SCH (09:19)
[2022-08-28 12:02] LABS: GLUCOMETER DEV NAME(LOC) 6N.2B; GLUCOSE,POINT OF CARE 115 MG/DL (70-110)
[2022-08-28 14:52] LABS: GLUCOMETER DEV NAME(LOC) 6N.1; GLUCOSE,POINT OF CARE 204 MG/DL (70-110)
[2022-08-28 14:54] LABS: CALCIUM, TOTAL 9.3 mg/dL (8.8-10.5); CREATININE 1.16 mg/dL (0.60-1.30); POTASSIUM 4.7 mmol/L (3.5-5.1)
[2022-08-28 15:16] VITALS: BP 128/74
[2022-08-28] MEDS: ERTAPENEM SODIUM 1 GM in SODIUM CHLORIDE 0.9% 50 ML IV SCH (16:09)
[2022-08-28] MEDS ORDERED: ASCO500 PO (16:48)
[2022-08-28] MEDS ORDERED: HEPA500018 SQ (16:48)
[2022-08-28] MEDS ORDERED: QUET100T PO (16:50)
[2022-08-28] MEDS ORDERED: ERTA1I IM (16:53)
[2022-08-28] MEDS ORDERED: VANC1IV IV (17:00)
[2022-08-28 18:51] LABS: GLUCOMETER DEV NAME(LOC) 6N.1; GLUCOSE,POINT OF CARE 199 MG/DL (70-110)
== END 2022-08-28 21:36 | DRG 871 ==
LOC: EMS 13:34 → ICU 17:04 → 5N 08-14 04:20 → 6N 08-21 11:50
PROVIDERS: ADMIT Internal Medicine; ATTEND Internal Medicine
PROC: 05HC33Z Insertion of Infusion Device into Left Basilic Vein, Percutaneous Approach (ICD-10-PCS; principal; 2022-08-12)
PROC: XW033E5 Introduction of Remdesivir Anti-infective into Peripheral Vein, Percutaneous Approach, New Technology Group 5 (ICD-10-PCS; 2022-08-12)
PROC: 05H933Z Insertion of Infusion Device into Right Brachial Vein, Percutaneous Approach (ICD-10-PCS; 2022-08-19)
DX: A41.89 Other specified sepsis (principal); E43 Unspecified severe protein-calorie malnutrition; J80 Acute respiratory distress syndrome; U07.1 COVID-19; J12.82 Pneumonia due to coronavirus disease 2019; G92.9 Unspecified toxic encephalopathy; N17.9 Acute kidney failure, unspecified; J44.1 Chronic obstructive pulmonary disease with (acute) exacerbation; E87.20 Acidosis, unspecified; L03.114 Cellulitis of left upper limb; J44.0 Chronic obstructive pulmonary disease with (acute) lower respiratory infection; J98.11 Atelectasis; N12 Tubulo-interstitial nephritis, not specified as acute or chronic; Z16.24 Resistance to multiple antibiotics; F33.2 Major depressive disorder, recurrent severe without psychotic features; S21.101A Unspecified open wound of right front wall of thorax without penetration into thoracic cavity, initial encounter; R65.20 Severe sepsis without septic shock; D64.9 Anemia, unspecified; C50.919 Malignant neoplasm of unspecified site of unspecified female breast; E11.65 Type 2 diabetes mellitus with hyperglycemia; B96.20 Unspecified Escherichia coli [E. coli] as the cause of diseases classified elsewhere; F20.9 Schizophrenia, unspecified; E11.40 Type 2 diabetes mellitus with diabetic neuropathy, unspecified; E78.5 Hyperlipidemia, unspecified; F17.210 Nicotine dependence, cigarettes, uncomplicated; I11.9 Hypertensive heart disease without heart failure; E11.51 Type 2 diabetes mellitus with diabetic peripheral angiopathy without gangrene; X58.XXXA Exposure to other specified factors, initial encounter; Z74.01 Bed confinement status; Z78.1 Physical restraint status; Z89.611 Acquired absence of right leg above knee; Z91.199 Patient's noncompliance with other medical treatment and regimen due to unspecified reason; Y93.89 Activity, other specified; Y92.89 Other specified places as the place of occurrence of the external cause; Y99.8 Other external cause status; Z68.20 Body mass index [BMI] 20.0-20.9, adult
CPT/HCPCS: 36245; 36569; 71045; 71250; 76881; 76937; 80048; 80053; 80202; 80307; 81001; 82728; 82962; 83605; 83690; 83880; 84132; 84145; 84484; 85014; 85018; 85025; 85379; 86140; 87040; 87070; 87081; 87086; 87186; 87205; 92526; 92610; 93005; 93971; 97162; 99291; G0378; G0480; J0131; J1100; J1335; J1644; J2060; J2185; J2270; J2370; J2543; J3370; J3480; J3490; J7030; J7040; J7050; J7060; Q9967; 36415-L1; 36415-TC